=== PATIENT | male | born 1970 | race Caucasian/White ===

== ENCOUNTER 2018-01-23 19:26 | Inpatient (IN) | payer OTHER, SELFPAY ==
--- NOTE | 2018-01-23 20:15 | NURSING ---
Pt arrived by w/c from [facility]. Family at bedside.
[2018-01-23 20:24] VITALS: BMI 27.8
[2018-01-23 20:28] VITALS: BP 150/79; PULSE 100; RESP 17; TEMP 37.2; O2SAT 98
--- NOTE | 2018-01-23 20:30 | NURSING ---
Hospital back digger operator put a call to Neurologist, Dr Voss for orders.
--- NOTE | 2018-01-23 20:44 | NURSING ---
Answering service paged for Dr Voss a second time.
[2018-01-23] MEDS: oxyCODONE 5 MG Tablet 10 MG PO (21:59)
[2018-01-23 22:00] VITALS: BP 142/78; PULSE 97; RESP 17; TEMP 37; O2SAT 96
[2018-01-23 22:03] VITALS: BMI 27.9
[2018-01-23] MEDS: Senna/Docusate Sodium 1 Tablet 2 TABLET PO (22:23)
[2018-01-23] MEDS: traMADol 50 MG Tablet PO (23:32)
[2018-01-24] MEDS: oxyCODONE 5 MG Tablet 10 MG PO ×6 (02:02→23:04)
[2018-01-24 05:48] LABS: Hematocrit 40.3 % (40-54); Hemoglobin 13.4 g/dl (13.0-16.5); Mean Corp Hgb Conc 33.3 g/gl (32-36); Mean Corpuscular Volume 87.2 fL (80-94); Mean Platelet Vol. 10.5 fl (6.2-12.0); Platelet Count 221 K/mm3 (150-450); RBC Distribution Width CV 12.5 % (11.6-14.6); RBC Distribution Width SD 39.8 fl (35.1-43.9); Red Blood Count 4.62 M/mm3 (4.6-6.2); White Blood Count 8.3 K/mm3 (4.4-11.0)
[2018-01-24 05:55] LABS: Scan Indicated on CBC? Y/N NO
[2018-01-24 06:09] LABS: Anion Gap 8 (5-15); BUN 11 mg/dL (7-18); BUN/Creat Ratio 13.9 RATIO (10-20); Calcium,Total 9.2 mg/dL (8.5-10.1); Chloride 101 mmol/L (98-107); Creatinine, Serum 0.79 mg/dL (0.70-1.30); EST Glomerular Filtration Rate 112 mL/min (>60); Est Glom Filt Rate - Afr Amer 136 mL/min (>60); Estimated Creatinine Clearance 118.08 ml/min; Glucose 110 mg/dL (74-106); Potassium 4.3 mmol/L (3.5-5.1); Sodium Level 139 mmol/L (136-145)
[2018-01-24 06:53] VITALS: BP 146/78; PULSE 90; RESP 18; TEMP 36.4; O2SAT 98
[2018-01-24 07:00] VITALS: BP 146/78; PULSE 90; RESP 18; TEMP 36.4; O2SAT 98
[2018-01-24] MEDS: Enoxaparin 40 MG/0.4 ML Syringe SC (09:56)
[2018-01-24] MEDS: Multivitamins,Therapeutic Tablet 1 TABLET PO (09:57)
[2018-01-24] MEDS: fentaNYL 25 MCG Patch TRANSDERM. (09:57)
[2018-01-24] MEDS: Senna/Docusate Sodium 1 Tablet 2 TABLET PO ×2 (09:59→21:39)
[2018-01-24] MEDS: Pantoprazole Sodium 40 MG Tablet PO (09:59)
[2018-01-24] MEDS: Acetaminophen 325 MG Tablet 650 MG PO (10:02)
--- NOTE | 2018-01-24 12:07 | PCM.PROGNOTE ---
Patient Problems: Active and Suspected Problems Bilateral ankle fractures (Acute) Fall from ladder (Acute) Subjective: Chief complaint: Consultation for medical management after admission to inpatient rehab unit. Patient admitted to inpatient rehab unit after he suffered bilateral ankle fractures due to fall from a ladder, underwent operative repair with operative reduction and internal fixation. At this time, he states that his bilateral ankle pains are well managed. He has no specific complaints. His vital signs are stable. His routine blood work from today including CBC and BMP was unremarkable. - Physical Exam General: Alert, Oriented x3, Cooperative, No apparent distress HEENT: Atraumatic, PERRLA, EOMI, Normocephalic Oral: Moist Mucosa, No Gingival or Mucosal Lesions/ Ulcerations Neck: Supple, No JVD, Negative Carotid Bruits, Trachea Midline, Thyroid Normal Size and Texture Lungs: Clear to auscultation, Normal air movement, No rhonchi, No wheeze, No rales Cardiovascular: Regular rate, Regular Rhythm, Normal S1, Normal S2, No murmurs, PMI Normal Abdomen: Bowel Sounds Present, Soft, Non Tender, Non-Distended, No Hepato-splenomegaly Extremities: No clubbing, No cyanosis, - - Both legs and feet are in cast from just below knee down to the toes. Skin: No rashes, No breakdown Lymphatic: No Cervical, Supraclavicular, or Inguinal Adenopathy Neurological: Cranial nerves II-XII grossly intact, Motor Exam 5/5 strength throughout Psych/Mental Status: Normal Affect, Appropriate, Alert and oriented to time, place, person, mood and affect Vital Signs Temp Pulse Resp BP Pulse Ox 97.6 F L 90 18 146/78 H 98 01/24/18 07:00 01/24/18 07:00 01/24/18 07:00 01/24/18 07:00 01/24/18 07:00 Oxygen Delivery Method Room Air Weight: 189 lb Body Mass Index (BMI) 27.8 Intake and Output for Last 24 Hours 01/22/18 01/23/18 01/24/18 23:59 23:59 23:59 Intake Total 240 / 240 360 / 360 Output Total 300 / 300 950 / 950 Balance -60 / -60 -590 / -590 Laboratory Tests Past 24 Hrs 01/24/18 01/24/18 05:20 05:20 WBC 8.3 RBC 4.62 Hgb 13.4 Hct 40.3 MCV 87.2 MCH 29.0 MCHC 33.3 RDW 12.5 RDW Differential 39.8 Plt Count 221 MPV 10.5 Sodium 139 Potassium 4.3 Chloride 101 Carbon Dioxide 30.0 Anion Gap 8 BUN 11 Creatinine 0.79 Estim Creat Clear Calc 118.08 Est GFR (MDRD) Af Amer 136 Est GFR (MDRD) Non-Af 112 BUN/Creatinine Ratio 13.9 Glucose 110 H Calcium 9.2 Medical Necessity - Tobacco Use Smoking Status: Never smoker Assessment/Plan All Active Problems Bilateral ankle fractures (Acute) Fall from ladder (Acute) This is a 47 years old male patient admitted to inpatient rehab unit after he suffered bilateral ankle fractures due to fall from a ladder, underwent open reduction and internal fixation of the ankle fractures and I am seeing this patient in consultation for medical management. #1 acute traumatic bilateral ankle fracture due to fall from a ladder: Status post open reduction and internal fixation. He is on Duragesic patch and OxyIR as needed for pain as well as tramadol. His vital signs are stable. Routine blood work was unremarkable. He is doing well with physical therapy. Plan to continue PT OT according to rehab team. #2 GERD: Continue Protonix. #3 DVT prophylaxis: Subcu Lovenox. This note was generated with [employer] dictation software. It may contain incorrect words, spelling, and punctuation that were not noted in checking the note before signing. Code Visit Inpatient E&M: 00796 Subs Hosp L2
--- NOTE | 2018-01-24 12:11 | PN_ITS ---
Patient Problems: Active and Suspected Problems Bilateral ankle fractures (Acute) Fall from ladder (Acute) Subjective: Chief complaint: Consultation for medical management after admission to inpatient rehab unit. Patient admitted to inpatient rehab unit after he suffered bilateral ankle fractures due to fall from a ladder, underwent operative repair with operative reduction and internal fixation. At this time, he states that his bilateral ankle pains are well managed. He has no specific complaints. His vital signs are stable. His routine blood work from today including CBC and BMP was unremarkable. - Physical Exam General: Alert, Oriented x3, Cooperative, No apparent distress HEENT: Atraumatic, PERRLA, EOMI, Normocephalic Oral: Moist Mucosa, No Gingival or Mucosal Lesions/ Ulcerations Neck: Supple, No JVD, Negative Carotid Bruits, Trachea Midline, Thyroid Normal Size and Texture Lungs: Clear to auscultation, Normal air movement, No rhonchi, No wheeze, No rales Cardiovascular: Regular rate, Regular Rhythm, Normal S1, Normal S2, No murmurs, PMI Normal Abdomen: Bowel Sounds Present, Soft, Non Tender, Non-Distended, No Hepato- splenomegaly Extremities: No clubbing, No cyanosis, - - Both legs and feet are in cast from just below knee down to the toes. Skin: No rashes, No breakdown Lymphatic: No Cervical, Supraclavicular, or Inguinal Adenopathy Neurological: Cranial nerves II-XII grossly intact, Motor Exam 5/5 strength t hroughout Psych/Mental Status: Normal Affect, Appropriate, Alert and oriented to time, place, person, mood and affect Vital Signs Temp Pulse Resp BP Pulse Ox 97.6 F L 90 18 146/78 H 98 01/24/18 07:00 01/24/18 07:00 01/24/18 07:00 01/24/18 07:00 01/24/18 07:00 Oxygen Delivery Method Room Air Weight: 189 lb Body Mass Index (BMI) 27.8 Intake and Output for Last 24 Hours 01/22/18 01/23/18 01/24/18 23:59 23:59 23:59 Intake Total 240 / 240 360 / 360 Output Total 300 / 300 950 / 950 Balance -60 / -60 -590 / -590 Laboratory Tests Past 24 Hrs 01/24/18 01/24/18 05:20 05:20 WBC 8.3 RBC 4.62 Hgb 13.4 Hct 40.3 MCV 87.2 MCH 29.0 MCHC 33.3 RDW 12.5 RDW Differential 39.8 Plt Count 221 MPV 10.5 Sodium 139 Potassium 4.3 Chloride 101 Carbon Dioxide 30.0 Anion Gap 8 BUN 11 Creatinine 0.79 Estim Creat Clear Calc 118.08 Est GFR (MDRD) Af Amer 136 Est GFR (MDRD) Non-Af 112 BUN/Creatinine Ratio 13.9 Glucose 110 H Calcium 9.2 Medical Necessity - Tobacco Use Smoking Status: Never smoker Assessment/Plan All Active Problems Bilateral ankle fractures (Acute) Fall from ladder (Acute) This is a 47 years old male patient admitted to inpatient rehab unit after he suffered bilateral ankle fractures due to fall from a ladder, underwent open reduction and internal fixation of the ankle fractures and I am seeing this patient in consultation for medical management. #1 acute traumatic bilateral ankle fracture due to fall from a ladder: Status post open reduction and internal fixation. He is on Duragesic patch and OxyIR as needed for pain as well as tramadol. His vital signs are stable. Routine blood work was unremarkable. He is doing well with physical therapy. Plan to continue PT OT according to rehab team. #2 GERD: Continue Protonix. #3 DVT prophylaxis: Subcu Lovenox. This note was generated with [employer] dictation software. It may contain incorrect words, spelling, and punctuation that were not noted in checking the note before signing. Code Visit Inpatient E&M: 86362 Subs Hosp L2
--- NOTE | 2018-01-24 12:58 | PCM.HP.STD ---
History of Present Illness Date of Admission: 01/23/18 Chief Complaint: Bilateral lower extremity pain and debility Mr. Hansen is a 47-year-old white male who was previously healthy, who is admitted to the rehab unit for debility after bilateral ankle fractures status post open reduction and internal fixation performed by Dr. Sharpe daily on 09/18/17. He apparently was elevated approximately 12 feet and fell off of a ladder landing on his feet. He suffered bilateral ankle fractures and required surgery as above. He normally weight works at [employer] and is completely healthy. He lives at home with his and several children 3 of whom are adults. He also has family members that live next door. He lives in a single level house and already has a ramp installed. He denies any other complaints other than pain he has experienced however some pain when he gets behind on his analgesics. Bowels and bladder are unaffected and he has no other complaints. Past Medical History Allergies No Known Allergies Allergy (Verified 01/23/18 21:08) Surgical History: no surgical history Psychiatric History: No pertinent psych hx Lives: With Family Smoking Status: Never smoker Alcohol: None Drugs: None Review of Systems Constitutional: Denies: Chills, Fever, Weight Change HEENT: Denies: Head Aches, Sinus Congestion, Sinus Drainage Cardiovascular: Denies: Chest Pain, Palpitations Respiratory: Denies: Cough, Shortness of breath at rest, Sputum production Gastrointestinal: Denies: Abdominal Pain, Nausea, Vomiting Genitourinary: Denies: Dysuria Musculoskeletal: Reports: Joint Pain. Denies: Joint Tenderness Skin: Denies: Rash, Wounds Neurological: Denies: Numbness, Tingling, Focal weakness Psychiatric: Denies: Anxiety, Depression, Homicidal Ideations, Suicidal Ideations Hematologic/ Lymphatic: Denies: Easy Bruising, Easy Bleeding VTE Information - Inpt Only VTE Present on Admission: Yes VTE Pharm Prophylaxis ordered?: Yes Patient Problems: Active and Suspected Problems Bilateral ankle fractures (Acute) Fall from ladder (Acute) - Physical Exam General: Alert, Oriented x3, Cooperative, No apparent distress Neurological: Cranial nerves II-XII grossly intact Psych/Mental Status: Normal Affect Vital Signs Temp Pulse Resp BP Pulse Ox 36.4 C L 90 18 146/78 H 98 01/24/18 07:00 01/24/18 07:00 01/24/18 07:00 01/24/18 07:00 01/24/18 07:00 Oxygen Delivery Method Room Air Weight: 85.729 kg Body Mass Index (BMI) 27.8 Intake and Output for Last 24 Hours 01/22/18 01/23/18 01/24/18 23:59 23:59 23:59 Intake Total 240 / 240 360 / 360 Output Total 300 / 300 950 / 950 Balance -60 / -60 -590 / -590 Laboratory Tests Past 24 Hrs 01/24/18 01/24/18 05:20 05:20 WBC 8.3 RBC 4.62 Hgb 13.4 Hct 40.3 MCV 87.2 MCH 29.0 MCHC 33.3 RDW 12.5 RDW Differential 39.8 Plt Count 221 MPV 10.5 Sodium 139 Potassium 4.3 Chloride 101 Carbon Dioxide 30.0 Anion Gap 8 BUN 11 Creatinine 0.79 Estim Creat Clear Calc 118.08 Est GFR (MDRD) Af Amer 136 Est GFR (MDRD) Non-Af 112 BUN/Creatinine Ratio 13.9 Glucose 110 H Calcium 9.2 Current Medications Generic Name Dose Route Start Last Admin Trade Name Freq PRN Reason Stop Dose Admin Acetaminophen 650 mg 01/23/18 21:09 01/24/18 10:02 Tylenol PO 650 mg Q6H PRN PRN Administration Mild Pain (0-3/10)/Headache Bisacodyl 10 mg 01/23/18 21:09 Dulcolax RECTAL .PRN X 1 PRN Constipation Enoxaparin Sodium 40 mg 01/24/18 10:00 01/24/18 09:56 Lovenox SC 40 mg DAILY OK Administration Fentanyl 25 mcg 01/24/18 10:00 01/24/18 09:57 Duragesic Patch TRANSDERM. 01/30/18 10:00 25 mcg Q3D OK Administration Magnesium Hydroxide 30 ml 01/23/18 21:09 Milk Of Magnesia PO .PRN X 1 PRN Constipation Multivitamins 1 tablet 01/24/18 08:00 01/24/18 09:57 Multivitamin PO 1 tablet DAILYCM OK Administration Ondansetron HCl 8 mg 01/23/18 21:45 Zofran PO Q8H PRN PRN NAUSEA Oxycodone HCl 10 mg 01/23/18 21:39 01/24/18 10:40 Oxyir PO 10 mg Q4H PRN PRN Administration SEVERE PAIN (6-10/10) Pantoprazole Sodium 40 mg 01/24/18 10:00 01/24/18 09:59 Protonix PO 40 mg DAILY OK Administration Senna/Docusate Sodium 2 tablet 01/23/18 22:00 01/24/18 09:59 Senokot-S, Autumn-Colace PO 2 tablet BID OK Administration Tizanidine HCl 4 mg 01/23/18 21:32 Zanaflex PO Q8H PRN PRN MUSCLE SPASM Tramadol HCl 50 mg 01/23/18 21:41 01/23/18 23:32 Ultram PO 01/30/18 10:00 50 mg TID PRN PRN Administration MODERATE PAIN (4-5/10) Assessment/Plan All Active Problems Bilateral ankle fractures (Acute) Fall from ladder (Acute) Debility status post open reduction and internal fixation of bilateral ankle fractures on 01/19/[address] Sharpe daily at [facility] with whom he is scheduled to follow-up on 02/04/18. The patient is here for essentially wheelchair transfers and would like to consider discharge 5 days from now however he understands that he may need more time in the rehab unit and is keeping an open mind about this. Goal of rehab is roman catholic of his prior level of functional independence. Plan: DVT prophylaxis: Lovenox PRN analgesics Physical therapy and occupational therapy for transfers Bowel protocol PRN sleep aid
--- NOTE | 2018-01-24 13:03 | PCM.RU.PYE ---
Admission Information Status Changes from Prescreening?: No changes Identified Actual Problem List:: Skin Intergrity, Pain, ALteration in Cmfrt, Mobility Impaired, Self Care Deficit, Ineffect.D/C Plan r/t Psy Potential Problem List:: DVT, Bleeding, Infection, UTI, Aspiration, Falls, Skin Integrity, Depression Risk of Complications DVT: LMWH, LIBERTAD Hose, Sequential Compression Device Bleeding: Monitor Lab Values, Nursing to Teach Precautions for anti-coagulation therapy., Wound, if applicable, to be assessed every shift., Stroke patients assessed for lethargy or change in status. Infection: Clinical Staff to Monitor for S/S of infection:, S/S of infection include fever, redness, warmth, etc. Urinary Tract Infection: Monitor for frequency, burning, discomfort, or incontinence., Nursing will obtain urine sample for urinalysis and C&S when ordered. Aspiration: Clinical staff will monitor for coughing, drooling, congestion., Speech will evaluate swallowing and dsyphasia., Nursing will monitor patient swallowing during meals. Falls: Patient will be evaluated for Fall Precautions, Patient will be placed on Fall Precautions as indicated per protocol. Skin Breakdown: Nursing will assess skin daily using assessment tool., Nursing will place on Skin Breakdown Precautions as indicated. Pain: Clinical staff will assess patient's pain level per protocol., Medications will be given, if needed, and the pain level reassessed., Other methods: Massage, distraction, decrease stimulus, etc. used PRN. Plan of Care Patient requires physician specializing in physical medicine and rehab oversight to provide close medical supervision of rehab issues including: Pain Management, Sleep Problems, Bowel and Bladder, Medical and co-morbidity Management, DVT prophylaxis, Rehabilitation Leadership, Coordination of treatment team Patient needs Physical Therapy: For a minimum of 1 hour, At least 5 out of 7 days Patient needs Physical Therapy to improve:: Mobility, Mobility, Mobility, Strengthening, Transfers, Stretching, ROM, Endurance, Stairs, Gait, Balance Patient needs Occupational Therapy: For a minimum of 1 hour, At least 5 out of 7 days Patient needs Occupational Therapy to improve ADL's incl.: Eating, Grooming, Bathing, Dressing, Toileting, Toilet transfers, Community Reintegration, Higher functioning activities, Household tasks, Adaptive Equipment, Splinting, Other activities as determined Patient requires 24/ Rehabilitation Nursing for: Pain Issues, Identifying and preventing risk factors, Monitoring and reporting current medical conditions, Assisting with ambulation, transfer, and all ADL's, Teaching patients about disease process and medications, Family teaching, Providing safe environment, Bowel and Bladder Issues, Skin integrity, Medication Management Patient needs Business Segment Manager/ Case Management for: Discharge Planning, Arranging Home Equipment or Services, Family Interventions Patient needs Dietary and Nutrition Services for: Adequate Nutrition, Nutritional Supplements, Nutritional Education Goals Patient will remain: free from falls, or injury at time of discharge. Patient will perform bed mobility at: MOD I level of assist. Patient will complete transfers from bed to chair at: MOD I level of assist. Patient will ambulate: 100 feet, with MOD I assist, with LRD Patient will complete upper body dressing at: MOD I level of assist. Patient will complete lower body dressing at: MOD I level of assist. Patient will complete toileting at: MOD I level of assist. Patient will perform bathing at: MOD I level of assist. Patient will complete grooming at: MOD I level of assist. Patient will complete home management skills at: MOD I level of assist. Patient will achieve: 12 stairs, at MOD I assist Patient will have pain level of: of 3 or less Patient's skin will: remain intact, free from infection. Patient will receive: adequate nutrition. Discharge Planning Pt Prognosis for Sig. Practical Improv. w/in Reasonable Time: Good Anticipated D/C Destination: Home with Outpt Therapy Was Preadmission Assessment Accurate?: Yes
--- NOTE | 2018-01-24 14:01 | CASEMGMT ---
Social Work See attached assessment for complete details. Patient reporting to need a wheelchair with elevated leg rest, removable arm rest, and a gel manuel along with a hospital bed, bedside commode with drop arms, and sliding board. Therapy confirming above mentioned equipment. Patient reporting to have no preference of [employer], [employer] to be utilized. Patient agreeable to this sr. social media & mobile manager beginning the process of setting up the equipment as it can take sometime for things to get ordered in, if needed to be ordered. Support given. Telephone call to Dayanna Lloyd. This sr. social media & mobile manager making referral for above mentioned equipment. Orders faxed. Dayanna reporting to have all needed equipment in stock at this time and to be able to hold equipment for patient until time of discharge. Will continue to follow as needed. CLARISSA IqbalW, AIRLINE MECHANIC
[2018-01-24] MEDS: tiZANidine HCl 2 MG Tablet 4 MG PO ×2 (15:00→23:04)
[2018-01-24 15:55] VITALS: O2SAT 95
[2018-01-24 21:16] VITALS: BP 146/69; PULSE 94; RESP 18; TEMP 36.9; O2SAT 93
[2018-01-24] MEDS: traMADol 50 MG Tablet PO (21:39)
[2018-01-25] MEDS: oxyCODONE 5 MG Tablet 10 MG PO ×4 (03:45→21:15)
[2018-01-25 06:42] VITALS: O2SAT 98
[2018-01-25 08:00] VITALS: BP 140/99; PULSE 103; RESP 20; TEMP 36.7; O2SAT 95
[2018-01-25] MEDS: Pantoprazole Sodium 40 MG Tablet PO (08:11)
[2018-01-25] MEDS: Multivitamins,Therapeutic Tablet 1 TABLET PO (08:11)
[2018-01-25] MEDS: Senna/Docusate Sodium 1 Tablet 2 TABLET PO (08:11)
[2018-01-25] MEDS: Enoxaparin 40 MG/0.4 ML Syringe SC (08:16)
[2018-01-25] MEDS: traMADol 50 MG Tablet PO (17:11)
[2018-01-25] MEDS: tiZANidine HCl 2 MG Tablet 4 MG PO (17:12)
[2018-01-25 20:53] VITALS: BP 132/75; PULSE 96; RESP 20; TEMP 37.1; O2SAT 95
[2018-01-26] MEDS: oxyCODONE 5 MG Tablet 10 MG PO ×5 (02:37→21:24)
[2018-01-26 06:44] VITALS: O2SAT 97
--- NOTE | 2018-01-26 06:47 | NURSING ---
Pt found in bathroom at [facility]. in room. states that she assisted per pt request. Pt reminded to call staff for assist for any transfers and that family should not be assisting unless cleared by therapy. Pt acknowledges
[2018-01-26 08:01] VITALS: BP 113/63; PULSE 82; RESP 16; TEMP 36.8; O2SAT 98
[2018-01-26] MEDS: Pantoprazole Sodium 40 MG Tablet PO (08:01)
[2018-01-26] MEDS: Enoxaparin 40 MG/0.4 ML Syringe SC (08:02)
[2018-01-26] MEDS: Multivitamins,Therapeutic Tablet 1 TABLET PO (08:02)
[2018-01-26] MEDS: tiZANidine HCl 2 MG Tablet 4 MG PO ×2 (14:44→23:08)
[2018-01-26 20:57] VITALS: BP 143/85; PULSE 86; RESP 16; TEMP 36.9; O2SAT 96
[2018-01-26] MEDS: Senna/Docusate Sodium 1 Tablet 2 TABLET PO (21:00)
--- NOTE | 2018-01-26 23:15 | NURSING ---
c/o burning heels. Pillows repositioned so heels hang freely
[2018-01-27] MEDS: oxyCODONE 5 MG Tablet 10 MG PO ×5 (03:04→23:02)
--- NOTE | 2018-01-27 03:17 | NURSING ---
Pt calls staff due to wet sheets and shirt from night sweats. Assisted with bath, linen and clothing change done; medicated for pain per request
[2018-01-27] MEDS: Acetaminophen 325 MG Tablet 650 MG PO (06:41)
[2018-01-27] MEDS: tiZANidine HCl 2 MG Tablet 4 MG PO ×2 (06:41→23:04)
[2018-01-27 06:51] VITALS: O2SAT 95
[2018-01-27 07:00] VITALS: BP 134/79; PULSE 74; RESP 14; TEMP 36.7; O2SAT 95
[2018-01-27] MEDS: Enoxaparin 40 MG/0.4 ML Syringe SC (08:06)
[2018-01-27] MEDS: Multivitamins,Therapeutic Tablet 1 TABLET PO (08:06)
[2018-01-27] MEDS: Pantoprazole Sodium 40 MG Tablet PO (08:06)
--- NOTE | 2018-01-27 10:49 | PCM.PN.NEU ---
Patient Problems: Active and Suspected Problems Bilateral ankle fractures (Acute) Fall from ladder (Acute) Subjective: Staffed in team meeting. Family was not at bedside, questions were answered. With Physical therapy, He is doing very well. He is able to do all his own transfers in and out of bed at stand by assist. He is able to position the wheel chair, place the sliding board, remove his arm rest, and leg rest, and transfer himself all at stand by assist. He has gone 325 feet in the wheel chair, up ramps, across carpeting and out side in the environment all at stand by assist. With Occupational therapy, He is able to do all his own personal care at supervision level assist. With Nursing he is still having some acute surgical pain, will increase his Fentanyl patch to 50mcq, schedule Tylenol 1,000 mg TID. Insurance update is 01/29, patient would like stay longer if allowed, he would benefit from additional upper body strengthening. - Physical Exam General: Alert, Oriented x3, Cooperative HEENT: Atraumatic, PERRLA, EOMI, Normocephalic Neck: Supple, No JVD, Negative Carotid Bruits Lungs: Clear to auscultation, Normal air movement Cardiovascular: Regular rate, No murmurs Abdomen: Bowel Sounds Present, Soft, Non Tender Extremities: No edema, Capillary Refill Less than 3 Seconds Skin: No rashes, No breakdown Musculoskeletal: No Tenderness to Palpation of Joints or Extremities Neurological: Cranial nerves II-XII grossly intact Psych/Mental Status: Normal Affect, Appropriate, Alert and oriented to time, place, person, mood and affect Vital Signs Temp Pulse Resp BP Pulse Ox 98.1 F 74 14 134/79 H 95 01/27/18 07:00 01/27/18 07:00 01/27/18 07:00 01/27/18 07:00 01/27/18 07:00 Oxygen Delivery Method Room Air Weight: 85.729 kg Body Mass Index (BMI) 27.8 Intake and Output for Last 24 Hours 01/25/18 01/26/18 01/27/18 23:59 23:59 23:59 Intake Total 720 / 720 240 / 240 Output Total 450 / 450 400 / 400 Balance 270 / 270 -400 / -400 240 / 240 Active Medications Acetaminophen (Tylenol) 1,000 mg PO TID OK Bisacodyl (Dulcolax) 10 mg RECTAL .PRN X 1 PRN PRN Reason: Constipation Enoxaparin Sodium (Lovenox) 40 mg SC DAILY [facility] Last Admin: 01/27/18 08:06 Dose: 40 mg Fentanyl (Duragesic Patch) 50 mcg TRANSDERM. Q72H [facility] Last Admin: 01/27/18 10:17 Dose: 50 mcg Magnesium Hydroxide (Milk Of Magnesia) 30 ml PO .PRN X 1 PRN PRN Reason: Constipation [facility]it[facility] ([facility]) [facility] Last Admin: 01/27/18 08:06 Dose: 1 tablet Ondansetron HCl (Zofran) 8 mg PO Q8H PRN PRN PRN Reason: NAUSEA Oxycodone HCl (Oxyir) 10 mg PO Q4H PRN PRN PRN Reason: SEVERE PAIN (6-10/10) Last Admin: 01/27/18 08:06 Dose: 10 mg Pantoprazole Sodium (Protonix) 40 mg PO DAILY [facility] Last Admin: 01/27/18 08:06 Dose: 40 mg Senna/Docusate Sodium (Senokot-S, Autumn-Colace) 2 tablet PO BID [facility] Last Admin: 01/27/18 08:08 Dose: Not Given Tizanidine HCl (Zanaflex) 4 mg PO Q8H PRN PRN PRN Reason: MUSCLE SPASM Last Admin: 01/27/18 06:41 Dose: 4 mg Tramadol HCl (Ultram) 50 mg PO TID PRN PRN PRN Reason: MODERATE PAIN (4-5/10) Stop: 01/30/18 10:00 Last Admin: 01/25/18 17:11 Dose: 50 mg Medical Necessity - Tobacco Use Smoking Status: Never smoker Assessment/Plan All Active Problems Bilateral ankle fractures (Acute) Fall from ladder (Acute) Debility status post open reduction and internal fixation of bilateral ankle fractures on 01/19/[address] Sharpe daily at [facility] with whom he is scheduled to follow-up on 02/04/18. The patient is here for essentially wheelchair transfers and would like to consider discharge 5 days from now however he understands that he may need more time in the rehab unit and is keeping an open mind about this. Goal of rehab is congregational of his prior level of functional independence. Plan: - DVT prophylaxis: Lovenox - PRN analgesics -> started on Fentnayl patch at 25mcq will increase to 50 mcq 2/2 increased acute pain - Physical therapy and occupational therapy for transfers - Bowel protocol - PRN sleep aid - plan is discharge home when appropriate - B/L lower extremity cast, dressings are dry, clean, and intact
--- NOTE | 2018-01-27 11:51 | CASEMGMT ---
Team meeting held today with pt present. Pt is progressing well with therapy. Pt plans to continue with treatment plan at this time with no d/c date set. Insurance update due 01/29/18 and pt expressing desire to remain in rehab unit and continue with therapy beyond 01/29 if insurance approves continued stay. Pt is aware that if insurance denies continued stay d/c will be set for day after last covered day. [place] [facility] [place] ready for [place] in the home upon d/c date being set. Will continue with treatment plan at this time. ESTEVAN Martinez
[2018-01-27] MEDS: Acetaminophen 500 MG Tablet 1000 MG PO ×2 (14:39→23:04)
[2018-01-27 19:21] VITALS: BP 144/84; PULSE 87; RESP 16; TEMP 36.9; O2SAT 97
[2018-01-27 22:00] VITALS: RESP 16
[2018-01-27] MEDS: Senna/Docusate Sodium 1 Tablet 2 TABLET PO (23:06)
[2018-01-28] MEDS: Acetaminophen 500 MG Tablet 1000 MG PO ×3 (05:42→22:06)
[2018-01-28] MEDS: traMADol 50 MG Tablet PO (05:47)
[2018-01-28] MEDS: Pantoprazole Sodium 40 MG Tablet PO ×2 (08:45)
[2018-01-28] MEDS: Multivitamins,Therapeutic Tablet 1 TABLET PO (08:46)
[2018-01-28] MEDS: Enoxaparin 40 MG/0.4 ML Syringe SC (08:46)
[2018-01-28 10:00] VITALS: BP 138/74; PULSE 77; RESP 16; TEMP 36.8; O2SAT 99
[2018-01-28] MEDS: tiZANidine HCl 2 MG Tablet 4 MG PO ×2 (10:52→22:07)
--- NOTE | 2018-01-28 16:42 | PN.NEURO_ITS ---
Patient Problems: Active and Suspected Problems Bilateral ankle fractures (Acute) Fall from ladder (Acute) Subjective: Patient seen and examined. No new complaints, tolerating therapy. Pain is well controlled on current pain medications. No issues with GI/. - Physical Exam General: Alert, Oriented x3, Cooperative HEENT: Atraumatic, PERRLA, EOMI, Normocephalic Neck: Supple, No JVD, Negative Carotid Bruits Lungs: Clear to auscultation, Normal air movement Cardiovascular: Regular rate, No murmurs Abdomen: Bowel Sounds Present, Soft, Non Tender Extremities: No edema, Capillary Refill Less than 3 Seconds Skin: No rashes, No breakdown Musculoskeletal: No Tenderness to Palpation of Joints or Extremities Neurological: Cranial nerves II-XII grossly intact Psych/Mental Status: Normal Affect, Appropriate, Alert and oriented to time, place, person, mood and affect Vital Signs Temp Pulse Resp BP Pulse Ox 98.2 F 77 16 138/74 H 99 01/28/18 10:00 01/28/18 10:00 01/28/18 10:00 01/28/18 10:00 01/28/18 10:00 Oxygen Delivery Method Room Air Weight: 85.729 kg Body Mass Index (BMI) 27.8 Intake and Output for Last 24 Hours 01/26/18 01/27/18 01/28/18 23:59 23:59 23:59 Intake Total 480 / 480 Output Total 400 / 400 Balance -400 / -400 480 / 480 Active Medications Acetaminophen (Tylenol) 1,000 mg PO TID [facility] Last Admin: 01/28/18 14:34 Dose: 1,000 mg Bisacodyl (Dulcolax) 10 mg RECTAL .PRN X 1 PRN PRN Reason: Constipation Enoxaparin Sodium (Lovenox) 40 mg SC DAILY [facility] Last Admin: 01/28/18 08:46 Dose: 40 mg Fentanyl (Duragesic Patch) 50 mcg TRANSDERM. Q72H [facility] Last Admin: 01/27/18 10:17 Dose: 50 mcg Magnesium Hydroxide (Milk Of Magnesia) 30 ml PO .PRN X 1 PRN PRN Reason: Constipation [facility] Last Admin: 01/28/18 08:46 Dose: 1 tablet Ondansetron HCl (Zofran) 8 mg PO Q8H PRN PRN PRN Reason: NAUSEA Oxycodone HCl (Oxyir) 10 mg PO Q4H PRN PRN PRN Reason: SEVERE PAIN (6-10/10) Last Admin: 01/27/18 23:02 Dose: 10 mg Pantoprazole Sodium (Protonix) 40 mg PO DAILY [facility] Last Admin: 01/28/18 08:45 Dose: 40 mg Senna/Docusate Sodium (Senokot-S, Autumn-Colace) 2 tablet PO BID [facility] Last Admin: 01/28/18 08:46 Dose: Not Given Tizanidine HCl (Zanaflex) 4 mg PO Q8H PRN PRN PRN Reason: MUSCLE SPASM Last Admin: 01/28/18 10:52 Dose: 4 mg Tramadol HCl (Ultram) 50 mg PO TID PRN PRN PRN Reason: MODERATE PAIN (4-5/10) Stop: 01/30/18 10:00 Last Admin: 01/28/18 05:47 Dose: 50 mg Medical Necessity - Tobacco Use Smoking Status: Never smoker Assessment/Plan All Active Problems Bilateral ankle fractures (Acute) Fall from ladder (Acute) Debility status post open reduction and internal fixation of bilateral ankle fractures on 01/19/[address] Sharpe daily at [facility] with whom he is scheduled to follow-up on 02/04/18. The patient is here for essentially wheelchair transfers and would like to consider discharge 5 days from now however he understands that he may need more time in the rehab unit and is keeping an open mind about this. Goal of rehab is amish of his prior level of functional independence. Plan: - DVT prophylaxis: Lovenox - PRN analgesics -> started on Fentanyl patch at 25mcq will increase to 50 mcq 2/2 increased acute pain => pain well controlled on current medications - Physical therapy and occupational therapy for transfers - Bowel protocol - PRN sleep aid - plan is discharge home when appropriate - B/L lower extremity cast, dressings are dry, clean, and intact
[2018-01-28 19:10] VITALS: BP 142/87; PULSE 85; RESP 18; TEMP 37; O2SAT 96
[2018-01-29] MEDS: Acetaminophen 500 MG Tablet 1000 MG PO ×3 (06:39→21:55)
[2018-01-29] MEDS: Senna/Docusate Sodium 1 Tablet 2 TABLET PO (06:40)
[2018-01-29 08:33] VITALS: BP 160/76; PULSE 89; RESP 16; TEMP 36.8; O2SAT 95
[2018-01-29] MEDS: Multivitamins,Therapeutic Tablet 1 TABLET PO (09:08)
[2018-01-29] MEDS: Enoxaparin 40 MG/0.4 ML Syringe SC (09:08)
--- NOTE | 2018-01-29 09:35 | PCM.PN.NEU ---
Patient Problems: Active and Suspected Problems Bilateral ankle fractures (Acute) Fall from ladder (Acute) Subjective: Patient seen and examined. No new complaints. Tolerating therapy, pain is well controlled. No issues with GI/. He's doing very well with sliding board transfers, and using the wheel chair to move around the unit. - Physical Exam General: Alert, Oriented x3, Cooperative HEENT: Atraumatic, PERRLA, EOMI, Normocephalic Neck: Supple, No JVD, Negative Carotid Bruits Lungs: Clear to auscultation, Normal air movement Cardiovascular: Regular rate, No murmurs Abdomen: Bowel Sounds Present, Soft, Non Tender Extremities: No edema, Capillary Refill Less than 3 Seconds Skin: No rashes, No breakdown Musculoskeletal: No Tenderness to Palpation of Joints or Extremities Neurological: Cranial nerves II-XII grossly intact Psych/Mental Status: Normal Affect, Appropriate, Alert and oriented to time, place, person, mood and affect Vital Signs Temp Pulse Resp BP Pulse Ox 98.2 F 89 16 160/76 H 95 01/29/18 08:33 01/29/18 08:33 01/29/18 08:33 01/29/18 08:33 01/29/18 08:33 Oxygen Delivery Method Room Air Weight: 85.729 kg Body Mass Index (BMI) 27.8 Intake and Output for Last 24 Hours 01/27/18 01/28/18 01/29/18 23:59 23:59 23:59 Intake Total 480 / 480 Balance 480 / 480 Active Medications Acetaminophen (Tylenol) 1,000 mg PO TID [facility] Last Admin: 01/29/18 06:39 Dose: 1,000 mg Bisacodyl (Dulcolax) 10 mg RECTAL .PRN X 1 PRN PRN Reason: Constipation Enoxaparin Sodium (Lovenox) 40 mg SC DAILY [facility] Last Admin: 01/29/18 09:08 Dose: 40 mg Fentanyl (Duragesic Patch) 50 mcg TRANSDERM. Q72H [facility] Last Admin: 01/27/18 10:17 Dose: 50 mcg Magnesium Hydroxide (Milk Of Magnesia) 30 ml PO .PRN X 1 PRN PRN Reason: Constipation [facility] Last Admin: 01/29/18 09:08 Dose: 1 tablet Ondansetron HCl (Zofran) 8 mg PO Q8H PRN PRN PRN Reason: NAUSEA Oxycodone HCl (Oxyir) 10 mg PO Q4H PRN PRN PRN Reason: SEVERE PAIN (6-10/10) Last Admin: 01/27/18 23:02 Dose: 10 mg Pantoprazole Sodium (Protonix) 40 mg PO DAILY [facility] Last Admin: 01/28/18 08:45 Dose: 40 mg Senna/Docusate Sodium (Senokot-S, Autumn-Colace) 2 tablet PO BID [facility] Last Admin: 01/29/18 06:40 Dose: 1 tablet Tizanidine HCl (Zanaflex) 4 mg PO Q8H PRN PRN PRN Reason: MUSCLE SPASM Last Admin: 01/28/18 22:07 Dose: 4 mg Tramadol HCl (Ultram) 50 mg PO TID PRN PRN PRN Reason: MODERATE PAIN (4-5/10) Stop: 01/30/18 10:00 Last Admin: 01/28/18 05:47 Dose: 50 mg Medical Necessity - Tobacco Use Smoking Status: Never smoker Assessment/Plan All Active Problems Bilateral ankle fractures (Acute) Fall from ladder (Acute) Debility status post open reduction and internal fixation of bilateral ankle fractures on 01/19/[address] Sharpe daily at [facility] with whom he is scheduled to follow-up on 02/04/18. The patient is here for essentially wheelchair transfers and would like to consider discharge 5 days from now however he understands that he may need more time in the rehab unit and is keeping an open mind about this. Goal of rehab is latter-day of his prior level of functional independence. Plan: - DVT prophylaxis: Lovenox - PRN analgesics -> started on Fentanyl patch at 25mcq will increase to 50 mcq 2/2 increased acute pain => pain well controlled on current medications - Physical therapy and occupational therapy for transfers - Bowel protocol - PRN sleep aid - plan is discharge home when appropriate - B/L lower extremity cast, dressings are dry, clean, and intact
--- NOTE | 2018-01-29 09:38 | PN.NEURO_ITS ---
Patient Problems: Active and Suspected Problems Bilateral ankle fractures (Acute) Fall from ladder (Acute) Subjective: Patient seen and examined. No new complaints. Tolerating therapy, pain is well controlled. No issues with GI/. He's doing very well with sliding board transfers, and using the wheel chair to move around the unit. - Physical Exam General: Alert, Oriented x3, Cooperative HEENT: Atraumatic, PERRLA, EOMI, Normocephalic Neck: Supple, No JVD, Negative Carotid Bruits Lungs: Clear to auscultation, Normal air movement Cardiovascular: Regular rate, No murmurs Abdomen: Bowel Sounds Present, Soft, Non Tender Extremities: No edema, Capillary Refill Less than 3 Seconds Skin: No rashes, No breakdown Musculoskeletal: No Tenderness to Palpation of Joints or Extremities Neurological: Cranial nerves II-XII grossly intact Psych/Mental Status: Normal Affect, Appropriate, Alert and oriented to time, place, person, mood and affect Vital Signs Temp Pulse Resp BP Pulse Ox 98.2 F 89 16 160/76 H 95 01/29/18 08:33 01/29/18 08:33 01/29/18 08:33 01/29/18 08:33 01/29/18 08:33 Oxygen Delivery Method Room Air Weight: 85.729 kg Body Mass Index (BMI) 27.8 Intake and Output for Last 24 Hours 01/27/18 01/28/18 01/29/18 23:59 23:59 23:59 Intake Total 480 / 480 Balance 480 / 480 Active Medications Acetaminophen (Tylenol) 1,000 mg PO TID [facility] Last Admin: 01/29/18 06:39 Dose: 1,000 mg Bisacodyl (Dulcolax) 10 mg RECTAL .PRN X 1 PRN PRN Reason: Constipation Enoxaparin Sodium (Lovenox) 40 mg SC DAILY [facility] Last Admin: 01/29/18 09:08 Dose: 40 mg Fentanyl (Duragesic Patch) 50 mcg TRANSDERM. Q72H [facility] Last Admin: 01/27/18 10:17 Dose: 50 mcg Magnesium Hydroxide (Milk Of Magnesia) 30 ml PO .PRN X 1 PRN PRN Reason: Constipation [facility] Last Admin: 01/29/18 09:08 Dose: 1 tablet Ondansetron HCl (Zofran) 8 mg PO Q8H PRN PRN PRN Reason: NAUSEA Oxycodone HCl (Oxyir) 10 mg PO Q4H PRN PRN PRN Reason: SEVERE PAIN (6-10/10) Last Admin: 01/27/18 23:02 Dose: 10 mg Pantoprazole Sodium (Protonix) 40 mg PO DAILY [facility] Last Admin: 01/28/18 08:45 Dose: 40 mg Senna/Docusate Sodium (Senokot-S, Autumn-Colace) 2 tablet PO BID [facility] Last Admin: 01/29/18 06:40 Dose: 1 tablet Tizanidine HCl (Zanaflex) 4 mg PO Q8H PRN PRN PRN Reason: MUSCLE SPASM Last Admin: 01/28/18 22:07 Dose: 4 mg Tramadol HCl (Ultram) 50 mg PO TID PRN PRN PRN Reason: MODERATE PAIN (4-5/10) Stop: 01/30/18 10:00 Last Admin: 01/28/18 05:47 Dose: 50 mg Medical Necessity - Tobacco Use Smoking Status: Never smoker Assessment/Plan All Active Problems Bilateral ankle fractures (Acute) Fall from ladder (Acute) Debility status post open reduction and internal fixation of bilateral ankle fractures on 01/19/[address] Sharpe daily at [facility] with whom he is scheduled to follow-up on 02/04/18. The patient is here for essentially wheelchair transfers and would like to consider discharge 5 days from now however he understands that he may need more time in the rehab unit and is keeping an open mind about this. Goal of rehab is hinduism of his prior level of functional independence. Plan: - DVT prophylaxis: Lovenox - PRN analgesics -> started on Fentanyl patch at 25mcq will increase to 50 mcq 2/2 increased acute pain => pain well controlled on current medications - Physical therapy and occupational therapy for transfers - Bowel protocol - PRN sleep aid - plan is discharge home when appropriate - B/L lower extremity cast, dressings are dry, clean, and intact
--- NOTE | 2018-01-29 12:17 | CASEMGMT ---
Insurance Clinical updates faxed. Will await continued stay determination. Auth#[id number] ESTEVAN Martinez
[2018-01-29] MEDS: tiZANidine HCl 2 MG Tablet 4 MG PO ×2 (13:56→21:58)
[2018-01-29 22:00] VITALS: BP 158/87; PULSE 92; RESP 16; TEMP 36.9; O2SAT 94
--- NOTE | 2018-01-30 04:29 | NURSING ---
REVIEWED AND AGREE WITH CREATIVE LEAD FIM AND HANDOFF CHARTING.
[2018-01-30] MEDS: Acetaminophen 500 MG Tablet 1000 MG PO ×3 (06:46→22:20)
[2018-01-30 08:11] VITALS: BP 121/60; PULSE 77; RESP 20; TEMP 36.8; O2SAT 95
[2018-01-30] MEDS: Multivitamins,Therapeutic Tablet 1 TABLET PO (09:06)
[2018-01-30] MEDS: Senna/Docusate Sodium 1 Tablet 2 TABLET PO ×2 (09:06→22:20)
[2018-01-30] MEDS: Pantoprazole Sodium 40 MG Tablet PO (09:07)
[2018-01-30] MEDS: Enoxaparin 40 MG/0.4 ML Syringe SC (09:07)
--- NOTE | 2018-01-30 10:49 | PCM.PN.NEU ---
Patient Problems: Active and Suspected Problems Bilateral ankle fractures (Acute) Fall from ladder (Acute) Subjective: Patient seen and examined. Pain is well controlled, patient would like for the Fentanyl patch to be decreased back to 25mcq. Tolerating therapy and doing well. The plan is for discharge home tomorrow 01/31 with an extension exercise plan until cast removal by the surgeon. - Physical Exam General: Alert, Oriented x3, Cooperative HEENT: Atraumatic, PERRLA, EOMI, Normocephalic Neck: Supple, No JVD, Negative Carotid Bruits Lungs: Clear to auscultation, Normal air movement Cardiovascular: Regular rate, No murmurs Abdomen: Bowel Sounds Present, Soft, Non Tender Extremities: No edema, Capillary Refill Less than 3 Seconds Skin: No rashes, No breakdown Musculoskeletal: No Tenderness to Palpation of Joints or Extremities Neurological: Cranial nerves II-XII grossly intact Psych/Mental Status: Normal Affect, Appropriate, Alert and oriented to time, place, person, mood and affect Vital Signs Temp Pulse Resp BP Pulse Ox 98.3 F 77 20 H 121/60 H 95 01/30/18 08:11 01/30/18 08:11 01/30/18 08:11 01/30/18 08:11 01/30/18 08:11 Oxygen Delivery Method Room Air Weight: 85.729 kg Body Mass Index (BMI) 27.8 Intake and Output for Last 24 Hours 01/28/18 01/29/18 01/30/18 23:59 23:59 23:59 Intake Total 360 / 360 Balance 360 / 360 Active Medications Acetaminophen (Tylenol) 1,000 mg PO TID [facility] Last Admin: 01/30/18 06:46 Dose: 1,000 mg Bisacodyl (Dulcolax) 10 mg RECTAL .PRN X 1 PRN PRN Reason: Constipation Enoxaparin Sodium (Lovenox) 40 mg SC DAILY [facility] Last Admin: 01/30/18 09:07 Dose: 40 mg Fentanyl (Duragesic Patch) 25 mcg TRANSDERM. Q3D [facility] Magnesium Hydroxide (Milk Of Magnesia) 30 ml PO .PRN X 1 PRN PRN Reason: Constipation [facility] Last Admin: 01/30/18 09:06 Dose: 1 tablet Ondansetron HCl (Zofran) 8 mg PO Q8H PRN PRN PRN Reason: NAUSEA Oxycodone HCl (Oxyir) 10 mg PO Q4H PRN PRN PRN Reason: SEVERE PAIN (6-10/10) Last Admin: 01/27/18 23:02 Dose: 10 mg Pantoprazole Sodium (Protonix) 40 mg PO DAILY [facility] Last Admin: 01/30/18 09:07 Dose: 40 mg Senna/Docusate Sodium (Senokot-S, Autumn-Colace) 2 tablet PO BID [facility] Last Admin: 01/30/18 09:06 Dose: 1 tablet Tizanidine HCl (Zanaflex) 4 mg PO Q8H PRN PRN PRN Reason: MUSCLE SPASM Last Admin: 01/29/18 21:58 Dose: 4 mg Medical Necessity - Tobacco Use Smoking Status: Never smoker Assessment/Plan All Active Problems Bilateral ankle fractures (Acute) Fall from ladder (Acute) Debility status post open reduction and internal fixation of bilateral ankle fractures on 01/19/[address] Sharpe daily at [facility] with whom he is scheduled to follow-up on 02/04/18. The patient is here for essentially wheelchair transfers and would like to consider discharge 5 days from now however he understands that he may need more time in the rehab unit and is keeping an open mind about this. Goal of rehab is christianity of his prior level of functional independence. Plan: - DVT prophylaxis: Lovenox - PRN analgesics -> started on Fentanyl patch at 25mcq will increase to 50 mcq 2/2 increased acute pain => pain well controlled on current medications - Physical therapy and occupational therapy for transfers - Bowel protocol - PRN sleep aid - plan is discharge home when appropriate - B/L lower extremity cast, dressings are dry, clean, and intact - Plan is for discharge on Saturday home with home exercises for Physical therapy and occupational therapy, will have formal PT/OT once cast are removed.
--- NOTE | 2018-01-30 10:54 | PN.NEURO_ITS ---
Patient Problems: Active and Suspected Problems Bilateral ankle fractures (Acute) Fall from ladder (Acute) Subjective: Patient seen and examined. Pain is well controlled, patient would like for the Fentanyl patch to be decreased back to 25mcq. Tolerating therapy and doing well. The plan is for discharge home tomorrow 01/31 with an extension exercise plan until cast removal by the surgeon. - Physical Exam General: Alert, Oriented x3, Cooperative HEENT: Atraumatic, PERRLA, EOMI, Normocephalic Neck: Supple, No JVD, Negative Carotid Bruits Lungs: Clear to auscultation, Normal air movement Cardiovascular: Regular rate, No murmurs Abdomen: Bowel Sounds Present, Soft, Non Tender Extremities: No edema, Capillary Refill Less than 3 Seconds Skin: No rashes, No breakdown Musculoskeletal: No Tenderness to Palpation of Joints or Extremities Neurological: Cranial nerves II-XII grossly intact Psych/Mental Status: Normal Affect, Appropriate, Alert and oriented to time, place, person, mood and affect Vital Signs Temp Pulse Resp BP Pulse Ox 98.3 F 77 20 H 121/60 H 95 01/30/18 08:11 01/30/18 08:11 01/30/18 08:11 01/30/18 08:11 01/30/18 08:11 Oxygen Delivery Method Room Air Weight: 85.729 kg Body Mass Index (BMI) 27.8 Intake and Output for Last 24 Hours 01/28/18 01/29/18 01/30/18 23:59 23:59 23:59 Intake Total 360 / 360 Balance 360 / 360 Active Medications Acetaminophen (Tylenol) 1,000 mg PO TID [facility] Last Admin: 01/30/18 06:46 Dose: 1,000 mg Bisacodyl (Dulcolax) 10 mg RECTAL .PRN X 1 PRN PRN Reason: Constipation Enoxaparin Sodium (Lovenox) 40 mg SC DAILY [facility] Last Admin: 01/30/18 09:07 Dose: 40 mg Fentanyl (Duragesic Patch) 25 mcg TRANSDERM. Q3D [facility] Magnesium Hydroxide (Milk Of Magnesia) 30 ml PO .PRN X 1 PRN PRN Reason: Constipation [facility]it[facility] ([facility]amin) [facility] Last Admin: 01/30/18 09:06 Dose: 1 tablet Ondansetron HCl (Zofran) 8 mg PO Q8H PRN PRN PRN Reason: NAUSEA Oxycodone HCl (Oxyir) 10 mg PO Q4H PRN PRN PRN Reason: SEVERE PAIN (6-10/10) Last Admin: 01/27/18 23:02 Dose: 10 mg Pantoprazole Sodium (Protonix) 40 mg PO DAILY [facility] Last Admin: 01/30/18 09:07 Dose: 40 mg Senna/Docusate Sodium (Senokot-S, Autumn-Colace) 2 tablet PO BID [facility] Last Admin: 01/30/18 09:06 Dose: 1 tablet Tizanidine HCl (Zanaflex) 4 mg PO Q8H PRN PRN PRN Reason: MUSCLE SPASM Last Admin: 01/29/18 21:58 Dose: 4 mg Medical Necessity - Tobacco Use Smoking Status: Never smoker Assessment/Plan All Active Problems Bilateral ankle fractures (Acute) Fall from ladder (Acute) Debility status post open reduction and internal fixation of bilateral ankle fractures on 01/19/[address] Sharpe daily at [facility] with whom he is scheduled to follow-up on 02/04/18. The patient is here for essentially wheelchair transfers and would like to consider discharge 5 days from now however he understands that he may need more time in the rehab unit and is keeping an open mind about this. Goal of rehab is sikh of his prior level of functional independence. Plan: - DVT prophylaxis: Lovenox - PRN analgesics -> started on Fentanyl patch at 25mcq will increase to 50 mcq 2/2 increased acute pain => pain well controlled on current medications - Physical therapy and occupational therapy for transfers - Bowel protocol - PRN sleep aid - plan is discharge home when appropriate - B/L lower extremity cast, dressings are dry, clean, and intact - Plan is for discharge on Saturday home with home exercises for Physical therapy and occupational therapy, will have formal PT/OT once cast are removed.
--- NOTE | 2018-01-30 11:52 | CASEMGMT ---
Social Work Met with pt and explained that insurance has not yet given continued stay determination. Pt states he is feeling he is ready to return home and would like d/c date set for 01/31 regardless of insurance decision. SW spoke with physician, therapy and nursing and all are in agreement pt is ready for d/c home. Pt will be sent home with home exercise program and no further therapy is needed at this time. Pt states his will be home today for needed DME to be ordered and she will be available tomorrow for transport home. Phone call to Dayanna at [facility] and requested DME be delivered today. [facility] will contact pt and set up time to deliver equipment: wheelchair with elevated leg rests and removable arm rest, bedside commode with drop arms, sliding board, hospital bed and gel cushion (which will be shipped to pt house). No further d/c needs at this time. Plan: home 01/31/18 with . ESTEVAN Martinez
[2018-01-30] MEDS: fentaNYL 25 MCG Patch TRANSDERM. (11:55)
--- NOTE | 2018-01-30 12:14 | CASEMGMT ---
Insurance SW spoke with Lilo from [facility] who is requested more information on pt. LAWSON explained that pt choosing to d/c home tomorrow 01/31. Lilo stating she will extend pt stay to cover today with d/c tomorrow. No further clinical information will be needed. Auth # [id number] Pt made aware and agreeable ESTEVAN Martinez
[2018-01-30] MEDS: tiZANidine HCl 2 MG Tablet 4 MG PO ×2 (15:00→23:04)
[2018-01-30 22:00] VITALS: BP 128/75; PULSE 75; RESP 16; TEMP 36.9; O2SAT 97
[2018-01-31] MEDS: Enoxaparin 40 MG/0.4 ML Syringe SC (06:40)
[2018-01-31] MEDS: Acetaminophen 500 MG Tablet 1000 MG PO (06:41)
[2018-01-31 07:00] VITALS: BP 126/95; PULSE 88; RESP 17; TEMP 36.6; O2SAT 97
[2018-01-31] MEDS: Multivitamins,Therapeutic Tablet 1 TABLET PO (08:46)
[2018-01-31] MEDS: Pantoprazole Sodium 40 MG Tablet PO (08:46)
[2018-01-31] MEDS: Senna/Docusate Sodium 1 Tablet 2 TABLET PO (08:47)
--- NOTE | 2018-01-31 10:51 | PCM.RU.DC ---
Rehab Discharge Summary DATE OF ADMISSION: 01/23/18 DATE OF DISCHARGE: 01/31/18 - Rehab Diagnosis Bilateral Ankle Fracture Patient Problems: Active and Suspected Problems Bilateral ankle fractures (Acute) Fall from ladder (Acute) Subjective: Patient states pain is well controlled on current pain regime. He was made MOD I yesterday and did very well, he was able to dress himself do all his own personal care all at wheelchair level. - Physical Exam General: Alert, Oriented x3, Cooperative HEENT: Atraumatic, PERRLA, EOMI, Normocephalic Neck: Supple, No JVD, Negative Carotid Bruits Lungs: Clear to auscultation, Normal air movement Cardiovascular: Regular rate, No murmurs Abdomen: Bowel Sounds Present, Soft, Non Tender Extremities: No edema, Capillary Refill Less than 3 Seconds Skin: No rashes, No breakdown Musculoskeletal: No Tenderness to Palpation of Joints or Extremities Neurological: Cranial nerves II-XII grossly intact Psych/Mental Status: Normal Affect, Appropriate, Alert and oriented to time, place, person, mood and affect Vital Signs Temp Pulse Resp BP Pulse Ox 97.9 F 88 17 126/95 H 97 01/31/18 07:00 01/31/18 07:00 01/31/18 07:00 01/31/18 07:00 01/31/18 07:00 Oxygen Delivery Method Room Air Weight: 85.729 kg Body Mass Index (BMI) 27.8 Intake and Output for Last 24 Hours 01/29/18 01/30/18 01/31/18 23:59 23:59 23:59 Intake Total 960 / 960 360 / 360 Balance 960 / 960 360 / 360 Active Medications Acetaminophen (Tylenol) 1,000 mg PO TID [facility] Last Admin: 01/31/18 06:41 Dose: 1,000 mg Bisacodyl (Dulcolax) 10 mg RECTAL .PRN X 1 PRN PRN Reason: Constipation Enoxaparin Sodium (Lovenox) 40 mg SC DAILY@0600 [facility] Last Admin: 01/31/18 06:40 Dose: 40 mg Fentanyl (Duragesic Patch) 25 mcg TRANSDERM. Q3D [facility] Last Admin: 01/30/18 11:55 Dose: 25 mcg Magnesium Hydroxide (Milk Of Magnesia) 30 ml PO .PRN X 1 PRN PRN Reason: Constipation Multivitamins (Multivitamin) 1 tablet PO DAILYCM [facility] Last Admin: 01/31/18 08:46 Dose: 1 tablet Ondansetron HCl (Zofran) 8 mg PO Q8H PRN PRN PRN Reason: NAUSEA Oxycodone HCl (Oxyir) 10 mg PO Q4H PRN PRN PRN Reason: SEVERE PAIN (6-10/10) Last Admin: 01/27/18 23:02 Dose: 10 mg Pantoprazole Sodium (Protonix) 40 mg PO DAILY [facility] Last Admin: 01/31/18 08:46 Dose: 40 mg Senna/Docusate Sodium (Senokot-S, Autumn-Colace) 2 tablet PO BID [facility] Last Admin: 01/31/18 08:47 Dose: 1 tablet Tizanidine HCl (Zanaflex) 4 mg PO Q8H PRN PRN PRN Reason: MUSCLE SPASM Last Admin: 01/30/18 23:04 Dose: 4 mg Discharge Diet: No Restrictions Discharge Activity: May Not Drive, May not drive while taking narcotic pain medications., May Not Shower, - - Use Wheelchair, may not take a Tub bath Weight Bearing Status: No weight bearing - B/L lower extremity Keep extremity elevated above heart level: Legs - Both Call your doctor if your incision/area has: Increased Pain/ Swelling Call your doctor if you observe: Fever of 101 or Higher, Coldness, Increased Pain, Numbness or Tingling, Change in Color, Inability to urinate, Inability to have a bowel movement, Using more than one pad per hour, Shortness of breath, Dizziness, Fainting spells, Swelling in the ankles, Chest pain, Prolonged hiccoughing, Increased palpitations (irregular heartbeat), Calf discomfort, Uncontrolled pain Home Medications: Medications to take at Discharge Multivitamins,Therapeutic [Multivitamin] 1 tablet PO DAILYCM tablet 01/31/18 Oxycodone [Oxyir] 10 mg PO Q4H PRN PRN 7 Days #28 tab 01/31/18 Pantoprazole Sodium [Protonix] 40 mg PO DAILY #30 tab 01/31/18 Tizanidine HCl [Zanaflex] 4 mg PO Q8H PRN PRN #30 tab 01/31/18 fentaNYL patch [Duragesic patch] 25 mcg TRANSDERM. Q3D 6 Days #2 patch 01/31/18 Following Prescrptions Were Given to Patient: Oxycodone [Oxyir] 10 mg PO Q4H PRN PRN 7 Days #28 tab PRN Reason: Severe Pain (6-12/04) Tizanidine HCl [Zanaflex] 4 mg PO Q8H PRN PRN #30 tab PRN Reason: Muscle Spasm fentaNYL patch [Duragesic patch] 25 mcg TRANSDERM. Q3D 6 Days #2 patch Pantoprazole Sodium [Protonix] 40 mg PO DAILY #30 tab Primary Care Physician: Allison Randall, VADIM-C [Primary Care Provider] - Disposition: Home - Pt will be sent home with home exercise program and no further therapy is needed at this time. The following equipment will be delivered to the patient home, wheelchair with elevated leg rests and removable arm rest, bedside commode with drop arms, sliding board, hospital bed and gel cushion (which will be shipped to pt house). Minutes spent on discharge:: 40 Patient Condition:: Good Rehab Course Mr. Hansen is a 47-year-old white male who was previously healthy, who is admitted to the rehab unit for debility after bilateral ankle fractures status post open reduction and internal fixation performed by Dr. Sharpe daily on 09/18/17. He apparently was elevated approximately 12 feet and fell off of a ladder landing on his feet. He suffered bilateral ankle fractures and required surgery as above. 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 He lives at home with his and several children 3 of whom are adults. He also has family members that live next door. He lives in a single level house and already has a ramp installed. He denies any other complaints other than pain he has experienced however some pain when he gets behind on his analgesics. Bowels and bladder are unaffected and he has no other complaints. While in the Rehab Unit () his other medical conditions were monitored. While in the Rehab Unit he improved with therapy and gained strength. His care in the rehab was uncomplicated and he was discharged home on 01/31/18 to complete the reminder of his care as an outpatient. Pt will be sent home with home exercise program and no further therapy is needed at this time, until cast are removed. He will be sent home with the following equipment: wheelchair with elevated leg rests and removable arm rest, bedside commode with drop arms, sliding board, hospital bed and gel cushion (which will be shipped to pt [place]). No further d/c needs at this time, until casts are removed. Summary of Care: - DVT prophylaxis: Lovenox - PRN analgesics -> started on Fentanyl patch at 25mcq will increase to 50 mcq 2/2 increased acute pain => pain well controlled on current medications - Physical therapy and occupational therapy for transfers - Bowel protocol - PRN sleep aid - plan is discharge home when appropriate - B/L lower extremity cast, dressings are dry, clean, and intact - Plan is for discharge on Saturday home with home exercises for Physical therapy and occupational therapy, will have formal PT/OT once cast are removed. Summary of Therapy Sessions: With Physical therapy, He is doing very well. He is able to do all his own transfers in and out of bed at stand by assist. He is able to position the wheel chair, place the sliding board, remove his arm rest, and leg rest, and transfer himself all at stand by assist. He has gone 325 feet in the wheel chair, up ramps, across carpeting and out side in the environment all at stand by assist. With Occupational therapy, He is able to do all his own personal care at supervision level assist. With Nursing he is still having some acute surgical pain, will increase his Fentanyl patch to 50mcq, schedule Tylenol 1,000 mg TID. Insurance update is 01/29, patient would like stay longer if allowed, he would benefit from additional upper body strengthening. Meaningful Use Info Meaningful Use Diagnoses (Choose all that apply): None applicable
--- NOTE | 2018-01-31 10:55 | DS.PCM_ITS ---
Rehab Discharge Summary DATE OF ADMISSION: 01/23/18 DATE OF DISCHARGE: 01/31/18 - Rehab Diagnosis Bilateral Ankle Fracture Patient Problems: Active and Suspected Problems Bilateral ankle fractures (Acute) Fall from ladder (Acute) Subjective: Patient states pain is well controlled on current pain regime. He was made MOD I yesterday and did very well, he was able to dress himself do all his own personal care all at wheelchair level. - Physical Exam General: Alert, Oriented x3, Cooperative HEENT: Atraumatic, PERRLA, EOMI, Normocephalic Neck: Supple, No JVD, Negative Carotid Bruits Lungs: Clear to auscultation, Normal air movement Cardiovascular: Regular rate, No murmurs Abdomen: Bowel Sounds Present, Soft, Non Tender Extremities: No edema, Capillary Refill Less than 3 Seconds Skin: No rashes, No breakdown Musculoskeletal: No Tenderness to Palpation of Joints or Extremities Neurological: Cranial nerves II-XII grossly intact Psych/Mental Status: Normal Affect, Appropriate, Alert and oriented to time, place, person, mood and affect Vital Signs Temp Pulse Resp BP Pulse Ox 97.9 F 88 17 126/95 H 97 01/31/18 07:00 01/31/18 07:00 01/31/18 07:00 01/31/18 07:00 01/31/18 07:00 Oxygen Delivery Method Room Air Weight: 85.729 kg Body Mass Index (BMI) 27.8 Intake and Output for Last 24 Hours 01/29/18 01/30/18 01/31/18 23:59 23:59 23:59 Intake Total 960 / 960 360 / 360 Balance 960 / 960 360 / 360 Active Medications Acetaminophen (Tylenol) 1,000 mg PO TID [facility] Last Admin: 01/31/18 06:41 Dose: 1,000 mg Bisacodyl (Dulcolax) 10 mg RECTAL .PRN X 1 PRN PRN Reason: Constipation Enoxaparin Sodium (Lovenox) 40 mg SC DAILY@0600 [facility] Last Admin: 01/31/18 06:40 Dose: 40 mg Fentanyl (Duragesic Patch) 25 mcg TRANSDERM. Q3D [facility] Last Admin: 01/30/18 11:55 Dose: 25 mcg Magnesium Hydroxide (Milk Of Magnesia) 30 ml PO .PRN X 1 PRN PRN Reason: Constipation Multivitamins (Multivitamin) 1 tablet PO DAILYCM [facility] Last Admin: 01/31/18 08:46 Dose: 1 tablet Ondansetron HCl (Zofran) 8 mg PO Q8H PRN PRN PRN Reason: NAUSEA Oxycodone HCl (Oxyir) 10 mg PO Q4H PRN PRN PRN Reason: SEVERE PAIN (6-10/10) Last Admin: 01/27/18 23:02 Dose: 10 mg Pantoprazole Sodium (Protonix) 40 mg PO DAILY [facility] Last Admin: 01/31/18 08:46 Dose: 40 mg Senna/Docusate Sodium (Senokot-S, Autumn-Colace) 2 tablet PO BID [facility] Last Admin: 01/31/18 08:47 Dose: 1 tablet Tizanidine HCl (Zanaflex) 4 mg PO Q8H PRN PRN PRN Reason: MUSCLE SPASM Last Admin: 01/30/18 23:04 Dose: 4 mg Discharge Diet: No Restrictions Discharge Activity: May Not Drive, May not drive while taking narcotic pain medications., May Not Shower, - - Use Wheelchair, may not take a Tub bath Weight Bearing Status: No weight bearing - B/L lower extremity Keep extremity elevated above heart level: Legs - Both Call your doctor if your incision/area has: Increased Pain/ Swelling Call your doctor if you observe: Fever of 101 or Higher, Coldness, Increased Pain, Numbness or Tingling, Change in Color, Inability to urinate, Inability to have a bowel movement, Using more than one pad per hour, Shortness of breath, Dizziness, Fainting spells, Swelling in the ankles, Chest pain, Prolonged hiccoughing, Increased palpitations (irregular heartbeat), Calf discomfort, Uncontrolled pain Home Medications: Medications to take at Discharge Multivitamins,Therapeutic [Multivitamin] 1 tablet PO DAILYCM tablet 01/31/18 Oxycodone [Oxyir] 10 mg PO Q4H PRN PRN 7 Days #28 tab 01/31/18 Pantoprazole Sodium [Protonix] 40 mg PO DAILY #30 tab 01/31/18 Tizanidine HCl [Zanaflex] 4 mg PO Q8H PRN PRN #30 tab 01/31/18 fentaNYL patch [Duragesic patch] 25 mcg TRANSDERM. Q3D 6 Days #2 patch 01/31/18 Following Prescrptions Were Given to Patient: Oxycodone [Oxyir] 10 mg PO Q4H PRN PRN 7 Days #28 tab PRN Reason: Severe Pain (6-12/04) Tizanidine HCl [Zanaflex] 4 mg PO Q8H PRN PRN #30 tab PRN Reason: Muscle Spasm fentaNYL patch [Duragesic patch] 25 mcg TRANSDERM. Q3D 6 Days #2 patch Pantoprazole Sodium [Protonix] 40 mg PO DAILY #30 tab Primary Care Physician: Allison Randall, VADIM-C [Primary Care Provider] - Disposition: Home - Pt will be sent home with home exercise program and no further therapy is needed at this time. The following equipment will be delivered to the patient home, wheelchair with elevated leg rests and removable arm rest, bedside commode with drop arms, sliding board, hospital bed and gel cushion (which will be shipped to pt house). Minutes spent on discharge:: 40 Patient Condition:: Good Rehab Course Mr. Hansen is a 47-year-old white male who was previously healthy, who is admitted to the rehab unit for debility after bilateral ankle fractures status post open reduction and internal fixation performed by Dr. Sharpe daily on 09/18/17. He apparently was elevated approximately 12 feet and fell off of a ladder landing on his feet. He suffered bilateral ankle fractures and required surgery as above. 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 He lives at home with his and several children 3 of whom are adults. He also has family members that live next door. He lives in a single level house and already has a ramp installed. He denies any other complaints other than pain he has experienced however some pain when he gets behind on his analgesics. Bowels and bladder are unaffected and he has no other complaints. While in the Rehab Unit () his other medical conditions were monitored. While in the Rehab Unit he improved with therapy and gained strength. His care in the rehab was uncomplicated and he was discharged home on 01/31/18 to complete the reminder of his care as an outpatient. Pt will be sent home with home exercise program and no further therapy is needed at this time, until cast are removed. He will be sent home with the following equipment: wheelchair with elevated leg rests and removable arm rest, bedside commode with drop arms, sliding board, hospital bed and gel cushion (which will be shipped to pt [place]). No further d/c needs at this time, until casts are removed. Summary of Care: - DVT prophylaxis: Lovenox - PRN analgesics -> started on Fentanyl patch at 25mcq will increase to 50 mcq 2/2 increased acute pain => pain well controlled on current medications - Physical therapy and occupational therapy for transfers - Bowel protocol - PRN sleep aid - plan is discharge home when appropriate - B/L lower extremity cast, dressings are dry, clean, and intact - Plan is for discharge on Saturday home with home exercises for Physical therapy and occupational therapy, will have formal PT/OT once cast are removed. Summary of Therapy Sessions: With Physical therapy, He is doing very well. He is able to do all his own transfers in and out of bed at stand by assist. He is able to position the wheel chair, place the sliding board, remove his arm rest, and leg rest, and transfer himself all at stand by assist. He has gone 325 feet in the wheel chair, up ramps, across carpeting and out side in the environment all at stand by assist. With Occupational therapy, He is able to do all his own personal care at supervision level assist. With Nursing he is still having some acute surgical pain, will increase his Fentanyl patch to 50mcq, schedule Tylenol 1,000 mg TID. Insurance update is 01/29, patient would like stay longer if allowed, he would benefit from additional upper body strengthening. Meaningful Use Info Meaningful Use Diagnoses (Choose all that apply): None applicable
--- NOTE | 2018-01-31 11:59 | DCINST_ITS ---
- Discharge Diagnoses Current Active Problems: Current Active and Chronic Problems Bilateral ankle fractures (Acute) Fall from ladder (Acute) Reason(s) for Visit for Discharge Instructions: Bilateral Ankle Fractures You will use the following diet at home:: Regular Your food should be the consistency of: Regular Your liquids should be the consistency of: Regular/Thin Discharge Activity: May Not Drive, May not drive while taking narcotic pain medications., May Not Shower, - - Use Wheelchair, may not take a Tub bath Weight Bearing Status: No weight bearing - B/L lower extremity Keep extremity elevated above heart level: Legs - Both Call your doctor if your incision/area has: Increased Pain/ Swelling Call your doctor if you observe: Fever of 101 or Higher, Coldness, Increased Pain, Numbness or Tingling, Change in Color, Inability to urinate, Inability to have a bowel movement, Using more than one pad per hour, Shortness of breath, Dizziness, Fainting spells, Swelling in the ankles, Chest pain, Prolonged hiccoughing, Increased palpitations (irregular heartbeat), Calf discomfort, Uncontrolled pain Allergies/Adverse Reactions: Allergies No Known Allergies Allergy (Verified 01/23/18 21:08) Medications to take at Discharge Multivitamins,Therapeutic [Multivitamin] 1 tablet PO DAILYCM tablet 01/31/18 Oxycodone [Oxyir] 10 mg PO Q4H PRN PRN 7 Days #28 tab 01/31/18 Pantoprazole Sodium [Protonix] 40 mg PO DAILY #30 tab 01/31/18 Tizanidine HCl [Zanaflex] 4 mg PO Q8H PRN PRN #30 tab 01/31/18 fentaNYL patch [Duragesic patch] 25 mcg TRANSDERM. Q3D 6 Days #2 patch 01/31/18 The following prescriptions were given: Oxycodone [Oxyir] 10 mg PO Q4H PRN PRN 7 Days #28 tab PRN Reason: Severe Pain (6-12/04) Tizanidine HCl [Zanaflex] 4 mg PO Q8H PRN PRN #30 tab PRN Reason: Muscle Spasm fentaNYL patch [Duragesic patch] 25 mcg TRANSDERM. Q3D 6 Days #2 patch Pantoprazole Sodium [Protonix] 40 mg PO DAILY #30 tab Primary Care Physician: Allison Randall NP-C [Primary Care Provider] - Test Results: Test results from this visit will be discussed in further detail at your follow- up appointment, if applicable. Proposed Discharge Date: 01/31/18
[2018-01-31 12:00] VITALS: BP 126/95; PULSE 88; RESP 17; TEMP 36.6; O2SAT 95
--- NOTE | 2018-02-04 16:45 | CASEMGMT ---
Insurance Notified insurance of patient discharge to home with family on 01/31/18. Auth#[id number] ESTEVAN Iqbal, [employer]
--- OUTSIDE RECORDS SUMMARY | 2018-03-20 23:37 | XMS RPT_ITS ---
:1970 Author Organization [facility] Care Team Providers Name Role Phone DR. EVERETT YBARRA DO Attending Unavailable PHYSICIAN, NOT RECORDED Primary Care Unavailable PHYSICIAN, NOT RECORDED Primary Care Unavailable MICHAEL TAVERAS MD Consulting Unavailable MICHAEL TAVERAS MD Attending Unavailable MICHAEL TAVERAS MD Admitting Unavailable DENIS CHIRINOS MD Consulting Unavailable Allsion Randall Attending Unavailable Allison Randall Referring Unavailable Allison Randall Consulting Unavailable Gilberto Valdivia Admitting Unavailable Gilberto Valdivia Attending Unavailable Allison Randall Primary Care Unavailable Gilberto Valdivia Admitting Unavailable Jose Angel Hearn Attending Unavailable Allison Randall Primary Care Unavailable Gilberto Valdivia Consulting Unavailable Purpose Purpose PROBLEMS PROBLEMS DATE TYPE CONDITION / CODE ATTENDING STATUS SOURCE 01/31/2018 Unknown S82.891A - Other Gilberto Valdivia Active Shanelle fracture of Community right lower leg, Hospital initial Repository encounter for closed fracture / S82.891A(ICD-10) 01/31/2018 Unknown S82.892A - Other Gilberto Valdivia Active Shanelle fracture of left Community lower leg, Hospital initial Repository encounter for closed fracture / S82.892A(ICD-10) PROCEDURES PROCEDURES No Procedure Records FoundVITAL SIGNS VITAL SIGNS No Vital Signs Records FoundRESULTS RESULTS DISCHARGE SUMMARY Observed: 01/31/2018 Status: C Source: SHANELLE 12:47 PM [facility] [place], [place] REPOSITORY [facility] Medical Records Department [address] [facility] [place] [address] Discharge Summary 01/31/18 1051 MR#: [id number] Acct: [id number] Name: JONO HANSEN Rep #: [id number] : 1970 47 From: Flor Donnelly NP-Juma PCP: Allison Randall NP Status: ADM IN Location: [place] [address] ADDENDUM by Grace Voss MD on 01/31/18 at 1246 I have personally examined the patient at bedside. Please see VADIM Donnelly's discharge note as below for further complete details. I have discussed the management plan for the patient in detail with VADIM Donnelly and please see the plan as noted below. Fall precautions. Further medical management per hospitalist recommendations. Had uncomplicated rehab stay, follow up with orthopedic surgery and PCP as outpatient following discharge. 01/31/18 1247 <Electronically signed by Dave Voss MD> Date Dave Voss MD cc: Allison Randall NP; VADIM Donnelly; Grace Voss MD * Addendum Rehab Discharge Summary DATE OF ADMISSION: 01/23/18 DATE OF DISCHARGE: 01/31/18 - Rehab Diagnosis Bilateral Ankle Fracture Patient Problems: Active and Suspected Problems Bilateral ankle fractures (Acute) Fall from ladder (Acute) Subjective: Patient states pain is well controlled on current pain regime. He was made MOD I yesterday and did very well, he was able to dress himself do all his own personal care all at wheelchair level. - Physical Exam General: Alert, Oriented x3, Cooperative HEENT: Atraumatic, PERRLA, EOMI, Normocephalic Neck: Supple, No JVD, Negative Carotid Bruits Lungs: Clear to auscultation, Normal air movement Cardiovascular: Regular rate, No murmurs Abdomen: Bowel Sounds Present, Soft, Non Tender Extremities: No edema, Capillary Refill Less than 3 Seconds Skin: No rashes, No breakdown Musculoskeletal: No Tenderness to Palpation of Joints or Extremities Neurological: Cranial nerves II-XII grossly intact Psych/Mental Status: Normal Affect, Appropriate, Alert and oriented to time, place, person, mood and affect Vital Signs Temp Pulse Resp BP Pulse Ox 97.9 F 88 17 126/95 H 97 01/31/18 07:00 01/31/18 07:00 01/31/18 07:00 01/31/18 07:00 01/31/18 07:00 Oxygen Delivery Method Room Air Weight: 85.729 kg Body Mass Index (BMI) 27.8 Intake and Output for Last 24 Hours Intake Total 960 / 960 360 / 360 Balance 960 / 960 360 / 360 Active Medications Acetaminophen (Tylenol) 1,000 mg PO TID [facility] Last Admin: 01/31/18 06:41 Dose: 1,000 mg Bisacodyl (Dulcolax) 10 mg RECTAL .PRN X 1 PRN PRN Reason: Constipation Enoxaparin Sodium (Lovenox) 40 mg SC DAILY@0600 [facility] Last Admin: 01/31/18 06:40 Dose: 40 mg Fentanyl (Duragesic Patch) 25 mcg TRANSDERM. Q3D [facility] Last Admin: 01/30/18 11:55 Dose: 25 mcg Magnesium Hydroxide (Milk Of Magnesia) 30 ml PO .PRN X 1 PRN PRN Reason: Constipation Multivitamins (Multivitamin) 1 tablet PO DAILYCM [facility] Last Admin: 01/31/18 08:46 Dose: 1 tablet Ondansetron HCl (Zofran) 8 mg PO Q8H PRN PRN PRN Reason: NAUSEA Oxycodone HCl (Oxyir) 10 mg PO Q4H PRN PRN PRN Reason: SEVERE PAIN (6-10/10) Last Admin: 01/27/18 23:02 Dose: 10 mg Pantoprazole Sodium (Protonix) 40 mg PO DAILY [facility] Last Admin: 01/31/18 08:46 Dose: 40 mg Senna/Docusate Sodium (Senokot-S, Autumn-Colace) 2 tablet PO BID [facility] Last Admin: 01/31/18 08:47 Dose: 1 tablet Tizanidine HCl (Zanaflex) 4 mg PO Q8H PRN PRN PRN Reason: MUSCLE SPASM Last Admin: 01/30/18 23:04 Dose: 4 mg Discharge Diet: No Restrictions Discharge Activity: May Not Drive, May not drive while taking narcotic pain medications., May Not Shower, - - Use Wheelchair, may not take a Tub bath Weight Bearing Status: No weight bearing - B/L lower extremity Keep extremity elevated above heart level: Legs - Both Call your doctor if your incision/area has: Increased Pain/ Swelling Call your doctor if you observe: Fever of 101 or Higher, Coldness, Increased Pain, Numbness or Tingling, Change in Color, Inability to urinate, Inability to have a bowel movement, Using more than one pad per hour, Shortness of breath, Dizziness, Fainting spells, Swelling in the ankles, Chest pain, Prolonged hiccoughing, Increased palpitations (irregular heartbeat), Calf discomfort, Uncontrolled pain Home Medications: Medications to take at Discharge Multivitamins,Therapeutic [Multivitamin] 1 tablet PO DAILYCM tablet 01/31/18 Oxycodone [Oxyir] 10 mg PO Q4H PRN PRN 7 Days #28 tab 01/31/18 Pantoprazole Sodium [Protonix] 40 mg PO DAILY #30 tab 01/31/18 Tizanidine HCl [Zanaflex] 4 mg PO Q8H PRN PRN #30 tab 01/31/18 fentaNYL patch [Duragesic patch] 25 mcg TRANSDERM. Q3D 6 Days #2 patch 01/31/18 Following Prescrptions Were Given to Patient: Oxycodone [Oxyir] 10 mg PO Q4H PRN PRN 7 Days #28 tab PRN Reason: Severe Pain (6-12/04) Tizanidine HCl [Zanaflex] 4 mg PO Q8H PRN PRN #30 tab PRN Reason: Muscle Spasm fentaNYL patch [Duragesic patch] 25 mcg TRANSDERM. Q3D 6 Days #2 patch Pantoprazole Sodium [Protonix] 40 mg PO DAILY #30 tab Primary Care Physician: Allison Randall, BULK TANK DRIVER-C [Primary Care Provider] - Disposition: Home - Pt will be sent home with home exercise program and no further therapy is needed at this time. The following equipment will be delivered to the patient home, wheelchair with elevated leg rests and removable arm rest, bedside commode with drop arms, sliding board, hospital bed and gel cushion (which will be shipped to [facility]). Minutes spent on discharge:: 40 Patient Condition:: Good Rehab Course Mr. Hansen is a 47-year-old white male who was previously healthy, who is admitted to the rehab unit for debility after bilateral ankle fractures status post open reduction and internal fixation performed by Dr. Rodriguez daily on 09/18/17. He apparently was elevated approximately 12 feet and fell off of a ladder landing on his feet. He suffered bilateral ankle fractures and required surgery as above. He normally weight works at [employer] and is completely healthy. He lives at home with his and several children 3 of whom are adults. He also has family members that live next door. He lives in a single level house and already has a ramp installed. He denies any other complaints other than pain he has experienced however some pain when he gets behind on his analgesics. Bowels and bladder are unaffected and he has no other complaints. While in the Rehab Unit () his other medical conditions were monitored. While in the Rehab Unit he improved with therapy and gained strength. His care in the rehab was uncomplicated and he was discharged home on 01/31/18 to complete the reminder of his care as an outpatient. Pt will be sent home with home exercise program and no further therapy is needed at this time, until cast are removed. He will be sent home with the following equipment: wheelchair with elevated leg rests and removable arm rest, bedside commode with drop arms, sliding board, hospital bed and gel cushion (which will be shipped to [place]). No further d/c needs at this time, until casts are removed. Summary of Care: - DVT prophylaxis: Lovenox - PRN analgesics -> started on Fentanyl patch at 25mcq will increase to 50 mcq 2/2 increased acute pain => pain well controlled on current medications - Physical therapy and occupational therapy for transfers - Bowel protocol - PRN sleep aid - plan is discharge home when appropriate - B/L lower extremity cast, dressings are dry, clean, and intact - Plan is for discharge on Saturday home with home exercises for Physical therapy and occupational therapy, will have formal PT/OT once cast are removed. Summary of Therapy Sessions: With Physical therapy, He is doing very well. He is able to do all his own transfers in and out of bed at stand by assist. He is able to position the wheel chair, place the sliding board, remove his arm rest, and leg rest, and transfer himself all at stand by assist. He has gone 325 feet in the wheel chair, up ramps, across carpeting and out side in the environment all at stand by assist. With Occupational therapy, He is able to do all his own personal care at supervision level assist. With Nursing he is still having some acute surgical pain, will increase his Fentanyl patch to 50mcq, schedule Tylenol 1,000 mg TID. Insurance update is 01/29, patient would like stay longer if allowed, he would benefit from additional upper body strengthening. Meaningful Use Info Meaningful Use Diagnoses (Choose all that apply): None applicable 01/31/18 1202 <Electronically signed by Flor Donnelly BULK TANK DRIVER-C> Date Flor Donnelly BULK TANK DRIVER-C 01/31/18 1244<Electronically signed by Dave Voss MD> Cosigner Signature (if applicable): Date Daev Voss MD CC: Allison Randall NP; VADIM Donnelly; Grace Voss MD Addendum DISCHARGE INSTRUCTION Observed: 01/31/2018 Status: F Source: HAROLD 11:59 AM [facility] [place], [place] REPOSITORY [facility] Medical Records Department [address] [place] [address] Instructions for Home/Discharge Instructions 01/31/18 1153 MR#: [id number] Acct: [id number] Name: JONO HANSEN Rep #: [id number] : 1970 47 From: Flor LIMA PCP: Allison Randall NP Status: ADM IN - Discharge Diagnoses Current Active Problems: Current Active and Chronic Problems Bilateral ankle fractures (Acute) Fall from ladder (Acute) Reason(s) for Visit for Discharge Instructions: Bilateral Ankle Fractures You will use the following diet at home:: Regular Your food should be the consistency of: Regular Your liquids should be the consistency of: Regular/Thin Discharge Activity: May Not Drive, May not drive while taking narcotic pain medications., May Not Shower, - - Use Wheelchair, may not take a Tub bath Weight Bearing Status: No weight bearing - B/L lower extremity Keep extremity elevated above heart level: Legs - Both Call your doctor if your incision/area has: Increased Pain/ Swelling Call your doctor if you observe: Fever of 101 or Higher, Coldness, Increased Pain, Numbness or Tingling, Change in Color, Inability to urinate, Inability to have a bowel movement, Using more than one pad per hour, Shortness of breath, Dizziness, Fainting spells, Swelling in the ankles, Chest pain, Prolonged hiccoughing, Increased palpitations (irregular heartbeat), Calf discomfort, Uncontrolled pain Allergies/Adverse Reactions: Allergies No Known Allergies Allergy (Verified 01/23/18 21:08) Medications to take at Discharge Multivitamins,Therapeutic [Multivitamin] 1 tablet PO DAILYCM tablet 01/31/18 Oxycodone [Oxyir] 10 mg PO Q4H PRN PRN 7 Days #28 tab 01/31/18 Pantoprazole Sodium [Protonix] 40 mg PO DAILY #30 tab 01/31/18 Tizanidine HCl [Zanaflex] 4 mg PO Q8H PRN PRN #30 tab 01/31/18 fentaNYL patch [Duragesic patch] 25 mcg TRANSDERM. Q3D 6 Days #2 patch 01/31/18 The following prescriptions were given: Oxycodone [Oxyir] 10 mg PO Q4H PRN PRN 7 Days #28 tab PRN Reason: Severe Pain (6-12/04) Tizanidine HCl [Zanaflex] 4 mg PO Q8H PRN PRN #30 tab PRN Reason: Muscle Spasm fentaNYL patch [Duragesic patch] 25 mcg TRANSDERM. Q3D 6 Days #2 patch Pantoprazole Sodium [Protonix] 40 mg PO DAILY #30 tab Primary Care Physician: Allison Randall NP-C [Primary Care Provider] - Test Results: Test results from this visit will be discussed in further detail at your follow-up appointment, if applicable. Proposed Discharge Date: 01/31/18 01/31/18 1159 <Electronically signed by Flor LIMA> Date Flor LIMA CC: Allison Randall NP HISTORY AND PHYSICAL Observed: 01/24/2018 Status: F Source: HAROLD EXAM 1:10 PM [facility] [place] [place] REPOSITORY [facility] Medical Records Department [address] [place] [id number] History and Physical 01/24/18 1258 MR#: [id number] Acct: [id number] Name: JONO HANSEN Rep #: [id number] : 1970 47 From: Gilberto Valdivia MD PCP: Allison Randall NP Status: ADM IN Location: [place] [address] History of Present Illness Date of Admission: 01/23/18 Chief Complaint: Bilateral lower extremity pain and debility Mr. Hansen is a 47-year-old white male who was previously healthy, who is admitted to the rehab unit for debility after bilateral ankle fractures status post open reduction and internal fixation performed by Dr. Rodriguez daily on 09/18/17. He apparently was elevated approximately 12 feet and fell off of a ladder landing on his feet. He suffered bilateral ankle fractures and required surgery as above. He normally weight works at [employer] and is completely healthy. He lives at home with his and several children 3 of whom are adults. He also has family members that live next door. He lives in a single level house and already has a ramp installed. He denies any other complaints other than pain he has experienced however some pain when he gets behind on his analgesics. Bowels and bladder are unaffected and he has no other complaints. Past Medical History Allergies No Known Allergies Allergy (Verified 01/23/18 21:08) Surgical History: no surgical history Psychiatric History: No pertinent psych hx Lives: With Family Smoking Status: Never smoker Alcohol: None Drugs: None Review of Systems Constitutional: Denies: Chills, Fever, Weight Change HEENT: Denies: Head Aches, Sinus Congestion, Sinus Drainage Cardiovascular: Denies: Chest Pain, Palpitations Respiratory: Denies: Cough, Shortness of breath at rest, Sputum production Gastrointestinal: Denies: Abdominal Pain, Nausea, Vomiting Genitourinary: Denies: Dysuria Musculoskeletal: Reports: Joint Pain. Denies: Joint Tenderness Skin: Denies: Rash, Wounds Neurological: Denies: Numbness, Tingling, Focal weakness Psychiatric: Denies: Anxiety, Depression, Homicidal Ideations, Suicidal Ideations Hematologic/ Lymphatic: Denies: Easy Bruising, Easy Bleeding VTE Information - Inpt Only VTE Present on Admission: Yes VTE Pharm Prophylaxis ordered?: Yes Patient Problems: Active and Suspected Problems Bilateral ankle fractures (Acute) Fall from ladder (Acute) - Physical Exam General: Alert, Oriented x3, Cooperative, No apparent distress Neurological: Cranial nerves II-XII grossly intact Psych/Mental Status: Normal Affect Vital Signs Temp Pulse Resp BP Pulse Ox 36.4 C L 90 18 146/78 H 98 01/24/18 07:00 01/24/18 07:00 01/24/18 07:00 01/24/18 07:00 01/24/18 07:00 Oxygen Delivery Method Room Air Weight: 85.729 kg Body Mass Index (BMI) 27.8 Intake and Output for Last 24 Hours Intake Total 240 / 240 360 / 360 Output Total 300 / 300 950 / 950 Balance -60 / -60 -590 / -590 Laboratory Tests Past 24 Hrs WBC 8.3 RBC 4.62 Hgb 13.4 Hct 40.3 Current Medications Generic Name Dose Route Start Last Admin Assessment/Plan All Active Problems Bilateral ankle fractures (Acute) Fall from ladder (Acute) Debility status post open reduction and internal fixation of bilateral ankle fractures on 01/19/[address] Rodriguez daily at [facility] with whom he is scheduled to follow-up on 02/04/18. The patient is here for essentially wheelchair transfers and would like to consider discharge 5 days from now however he understands that he may need more time in the rehab unit and is keeping an open mind about this. Goal of rehab is jew of his prior level of functional independence. Plan: DVT prophylaxis: Lovenox PRN analgesics Physical therapy and occupational therapy for transfers Bowel protocol PRN sleep aid 01/24/18 1310 <Electronically signed by Gilberto Valdivia MD> Date Gilberto Valdivia MD Cosigner Signature: Date (if applicable) CC: Allison Randall BULK TANK DRIVER; Gilberto Valdivia MD Signed CBC-COMPLETE BLOOD CNT Collected: 01/24/2018 Status: F Source: SHANELLE NO DIFF 5:20 AM [facility] [place], [place] REPOSITORY TYPE CODE TESTS RESULT OUT OF RANGE REFERENCE UNITS LAB L100.1000 4.4-11.0 K/mm3 Normal WBC 8.3 LAB L100.1200 4.6-6.2 M/mm3 Normal RBC 4.62 LAB L100.1300 13.0-16.5 g/dl Normal HGB 13.4 LAB L100.1400 40-54 % Normal HCT 40.3 LAB L100.1500 80-94 fL Normal MCV 87.2 LAB L100.1600 27.0-32.0 pg Normal MCH 29.0 LAB L100.1700 32-36 g/gl Normal MCHC 33.3 LAB L100.1810 11.6-14.6 % Normal RDW CV 12.5 LAB L100.1820 35.1-43.9 fl Normal RDW SD 39.8 LAB L100.1900 150-450 K/mm3 Normal PLT 221 LAB L100.2000 6.2-12.0 fl Normal MPV 10.5 Performed By: #### L100.0500 #### [facility] [address] [facility] [place], [address] BASIC METABOLIC Collected: 01/24/2018 Status: F Source: SHANELLE PROFILE ([facility]) 5:20 AM [facility] [place], [place] REPOSITORY TYPE CODE TESTS RESULT OUT OF RANGE REFERENCE UNITS LAB L501.0100 74-106 mg/dL High GLU 110 Result Comment: Fasting Glucose result from 100 to 125 mg/dL suggests IMPAIRED HOMEOSTASIS per A.D.A. criteria. Please note revised GLUCOSE reference range effective 2017. LAB L501.1000 7-18 mg/dL Normal BUN 11 LAB L501.1100 0.70-1.30 mg/dL Normal CREAT,SERUM 0.79 Result Comment: The validity of the calculated GFR AND GFRAA in patients over 70 years has not been determined. Clinical correlation is essential. LAB L501.1110 >60 mL/min Normal EST GFR 112 Result Comment: Non- GFR Calc LAB L501.1115 >60 mL/min Normal EST GFR - AA 136 Result Comment: GFR Calc LAB L501.1255 ml/min Normal Estimated CRCL 118.08 LAB L501.1300 10-20 RATIO BUN/CRE Normal 13.9 LAB L501.2200 8.5-10 mg/dL .1 CA Normal 9.2 LAB L501.5300 136-14 mmol/L 5 NA Normal 139 LAB L501.5600 3.5-5. mmol/L 1 K Normal 4.3 LAB L501.5900 98-107 mmol/L CL Normal 101 LAB L501.6100 21.0-3 mmol/L 2.0 CO2 Normal 30.0 LAB L501.6200 5-15 GAP Normal 8 Performed By: #### L500.2500 #### [facility] [address] [facility] [address] [facility] [place], [address] CBC Collected: 01/20/2018 Status: F Source: [facility] 4:40 AM [facility] REPOSITORY TYPE CODE TESTS RESULT OUT OF REFERENCE UNITS RANGE LAB WBC(LOINC) 4.50-10.80 10 3/mcL High WBC 12.10 LAB RBCCT(LOINC 4.50-6.00 10 6/mcL ) RBC 4.79 LAB HGB(LOINC) 13.0-17.5 G/dL Hgb 14.0 LAB HCT(LOINC) 40.0-52.0 % Hct 41.8 LAB MCV(LOINC) 81.0-100.0 fL MCV 87.2 LAB MCH(LOINC) 27.0-33.0 pg MCH 29.2 LAB MCHC(LOINC) 32.0-36.0 G/dL MCHC 33.5 LAB RDW(LOINC) 11.5-15.5 % RDW 13.4 LAB PLT(LOINC) 150-450 10 3/mcL Platelet 177 LAB MPV(LOINC) 6.4-10.5 fL MPV 10.0 Performed By: #### ANEU, CBC, BMP, ADIFF, GFR #### [address] [address] .AUTO DIFF Collected: 01/20/2018 Status: F Source: [facility] 4:40 AM [facility] REPOSITORY TYPE CODE TESTS RESULT OUT OF REFERENCE UNITS RANGE LAB DOLORES(LOINC) 50.0-75.0 % Neutrophil % 70.8 LAB LYM(LOINC) 20.0-40.0 % Low Lymphocyte % 16.3 LAB MON(LOINC) 2.0-13.0 % Monocyte % 12.3 LAB EO(LOINC) 0.0-6.0 % Eosinophil % 0.2 LAB BAS(LOINC) 0.0-2.5 % Basophil % 0.4 LAB ABLYM(LOIN 0.90-4.32 10 3/mcL C) Lymphocyte, 2.00 Absolute LAB PATRICIA(LOINC 0.09-1.40 10 3/mcL ) High Monocyte, 1.50 Absolute LAB AEOS(LOINC 0.00-0.65 10 3/mcL ) Eosinophil, 0.00 Absolute LAB ABAS(LOINC 0.00-0.27 10 3/mcL ) Basophil, 0.00 Absolute Performed By: #### ANEU, CBC, BMP, ADIFF, GFR #### [address] [address] .NEUABS Collected: 01/20/2018 Status: F Source: [facility] 4:40 AM [facility] REPOSITORY TYPE CODE TESTS RESULT OUT OF REFERENCE UNITS RANGE LAB ANEU(LOINC) 2.25-8.10 10 3/mcL High Neutrophil, 8.50 Absolute Performed By: #### ANEU, CBC, BMP, ADIFF, GFR #### [address] [address] BMP Collected: 01/20/2018 Status: F Source: [facility] 4:40 AM [facility] REPOSITORY TYPE CODE TESTS RESULT OUT OF REFERENCE UNITS RANGE LAB GLU(LOINC) 70-110 mg/dL Glucose High Level 115 LAB NA(LOINC) 136-145 mEq/L Sodium Level 139 LAB K(LOINC) 3.5-5.0 mEq/L Potassium Level 4.0 LAB CL(LOINC) 98-110 mEq/L Chloride 105 LAB CO2(LOINC) 22-32 mEq/L CO2 26 LAB EBAL(LOINC 4.0-15.0 mEq/L ) Electrolyte Balance 8.0 LAB BUN(LOINC) 8.0-22.0 mg/dL BUN 10.0 LAB CRE(LOINC) 0.60-1.40 mg/dL Creatinine Lvl (s) 0.69 LAB BC(LOINC) 10.0-22.0 ratio BUN/Creatinine 14.5 Ratio LAB CA(LOINC) 8.4-10.1 mg/dL Low Calcium Lvl 8.2 Performed By: #### ANEU, CBC, BMP, ADIFF, GFR #### [address] [address] .GFR Collected: 01/20/2018 Status: F Source: [facility] 4:40 AM [facility] REPOSITORY TYPE CODE TESTS RESULT OUT OF REFERENCE UNITS RANGE LAB GFRAA(LOINC ml/min/1.73 ) sqm GFR >60 [place] Result Comment: GFR Population mean for , Non- Americans Ages 20-29 = 116 mL/min/1.73 sq.m. Ages 30-39 = 107 mL/min/1.73 sq.m. Ages 40-49 = 99 mL/min/1.73 sq.m. Ages 50-59 = 93 mL/min/1.73 sq.m. Ages 60-69 = 85 mL/min/1.73 sq.m. Ages 70+ = 75 mL/min/1.73 sq.m. Chronic Kidney Disease: Less than 60 mL/min/1.73 square meters End Stage Renal Disease: Less than 15 mL/min/1.73 square meters LAB GFRNO(LOINC) ml/min/1.73sqm GFR Non- >60 Result Comment: GFR Population mean for , Non- Americans Ages 20-29 = 116 mL/min/1.73 sq.m. Ages 30-39 = 107 mL/min/1.73 sq.m. Ages 40-49 = 99 mL/min/1.73 sq.m. Ages 50-59 = 93 mL/min/1.73 sq.m. Ages 60-69 = 85 mL/min/1.73 sq.m. Ages 70+ = 75 mL/min/1.73 sq.m. Chronic Kidney Disease: Less than 60 mL/min/1.73 square meters End Stage Renal Disease: Less than 15 mL/min/1.73 square meters Performed By: #### ANEU, CBC, BMP, ADIFF, GFR #### [address] [address] PRO Collected: 01/19/2018 Status: F Source: [email or web address] 1:18 PM [facility] REPOSITORY TYPE CODE TESTS RESULT OUT OF REFERENCE UNITS RANGE LAB PT(LOINC) 9.0-14.6 seconds Protime 13.1 Result Comment: Effective 09/09/07, Protime results may be affected by some antibiotics (i.e. Ciprofloxacin, Azithromycin, Bactrim) which may potentiate the action of oral anticoagulants, with further increases in Protime/INR. LAB INR(LOINC) ratio PT International Ratio 1.1 Result Comment: The [place] [employer] (CHEST, 1992, 102:312S-25S) recommended therapeutic range for oral anticoagulant therapy is: LOW RISK: Prophylaxis of venous thrombosis INR: 2.0-3.0 Treatment of pulmonary embolism 2.0-3.0 Prevention of systemic embolism 2.0-3.0 HIGH RISK: Mechanical prosthetic valves 2.5-3.5 Performed By: #### PRO #### [address] [address] XR FLUORO 1-2 HRS Observed: 01/19/2018 Status: F Source: [email or web address] TECH TIME 9:45 AM [facility] REPOSITORY ORIGINAL XR FLUORO 1-2 HRS TECH TIME CLINICAL STATEMENT: jesús thomson fx Technical Details: Tech Time - 10:00-11:30a; C-Arm # - 11; Total Dose - 2.45mGy; Images - 5; Plumbing Warehouse Helper - nmk; History - bilat pilon fx; Fluoro Time - 24sec; FINDINGS: Fluoroscopic spot images were provided for interpretation. They demonstrate ORIF of an ankle fracture. Detail is limited. Please see the operative note for details. Interpreted By: Robbie Phillips Preliminary Report By: Robbie Phillips Electronically Signed By: Robbie Phillips Dictated Date: 01/19/2018 3:31:22 PM Prelim Date: 01/19/2018 3:31:22 PM Sign Date: 01/19/2018 3:31:39 PM XR FLUORO 1-2 HRS Observed: 01/19/2018 Status: F Source: [email or web address] TECH TIME 8:45 AM [facility] REPOSITORY ORIGINAL XR FLUORO 1-2 HRS TECH TIME CLINICAL STATEMENT: bilat pilon fx Technical Details: Tech Time - [id number]; C-Arm # - 11; Total Dose - .91mGy; Images - 4; Plumbing Warehouse Helper - nmk; History - bilat pilon fx; Fluoro Time - 11sec; FINDINGS: Fluoroscopic spot images were provided for interpretation. They demonstrate ORIF of an ankle fracture. Detail is limited. Please see the operative note for details. Interpreted By: Robbie Phillips Preliminary Report By: Robbie Phillips Electronically Signed By: Robbie Phillips Dictated Date: 01/19/2018 3:31:45 PM Prelim Date: 01/19/2018 3:31:45 PM Sign Date: 01/19/2018 3:32:10 PM XR CHEST 2 VIEWS Observed: 01/19/2018 Status: F Source: [email or web address] 7:15 AM [facility] REPOSITORY ORIGINAL XR CHEST 2 VIEWS CLINICAL STATEMENT: Chest Pain. COMPARISON: None FINDINGS: Lung volumes are low. The cardia mediastinal silhouette appears normal. Bibasilar consolidations favor atelectasis given low lung volumes. No pleural effusion, vascular congestion, or pneumoth orax is shown. No displaced fractures seen. Degenerative changes are seen in the spine. IMPRESSION: Hypoventilatory changes. Interpreted By: Scarlett Diamond MD Preliminary Report By: Scarlett Diamond MD Electronically Signed By: Scarlett Diamond MD Dictated Date: 01/19/2018 8:18:18 AM Prelim Date: 01/19/2018 8:18:18 AM Sign Date: 01/19/2018 8:20:29 AM CBC Collected: 01/19/2018 Status: F Source: [facility] 5:50 AM [facility] REPOSITORY TYPE CODE TESTS RESULT OUT OF REFERENCE UNITS RANGE LAB WBC(LOINC) 4.50-10.80 10 3/mcL High WBC 11.60 LAB RBCCT(LOINC 4.50-6.00 10 6/mcL ) RBC 4.85 LAB HGB(LOINC) 13.0-17.5 G/dL Hgb 14.0 LAB HCT(LOINC) 40.0-52.0 % Hct 42.0 LAB MCV(LOINC) 81.0-100.0 fL MCV 86.6 LAB MCH(LOINC) 27.0-33.0 pg MCH 28.9 LAB MCHC(LOINC) 32.0-36.0 G/dL MCHC 33.4 LAB RDW(LOINC) 11.5-15.5 % RDW 13.4 LAB PLT(LOINC) 150-450 10 3/mcL Platelet 200 LAB MPV(LOINC) 6.4-10.5 fL MPV 9.6 Performed By: #### ANTIS, ANEU, GFR, ADIFF, CMP, CBC, ABORH #### [place] [address] .AUTO DIFF Collected: 01/19/2018 Status: F Source: [facility] 5:50 AM [facility] REPOSITORY TYPE CODE TESTS RESULT OUT OF REFERENCE UNITS RANGE LAB DOLORES(LOINC) 50.0-75.0 % High Neutrophil % 78.3 LAB LYM(LOINC) 20.0-40.0 % Low Lymphocyte % 12.8 LAB MON(LOINC) 2.0-13.0 % Monocyte % 8.1 LAB EO(LOINC) 0.0-6.0 % Eosinophil % 0.5 LAB BAS(LOINC) 0.0-2.5 % Basophil % 0.3 LAB ABLYM(LOIN 0.90-4.32 10 3/mcL C) Lymphocyte, 1.50 Absolute LAB PATRICIA(LOINC 0.09-1.40 10 3/mcL ) Monocyte, 0.90 Absolute LAB AEOS(LOINC 0.00-0.65 10 3/mcL ) Eosinophil, 0.10 Absolute LAB ABAS(LOINC 0.00-0.27 10 3/mcL ) Basophil, 0.00 Absolute Performed By: #### ANTIS, ANEU, GFR, ADIFF, CMP, CBC, ABORH #### [place] [id number] .NEUABS Collected: 01/19/2018 Status: F Source: [facility] 5:50 AM [facility] REPOSITORY TYPE CODE TESTS RESULT OUT OF REFERENCE UNITS RANGE LAB ANEU(LOINC) 2.25-8.10 10 3/mcL High Neutrophil, 9.10 Absolute Performed By: #### ANTIS, ANEU, GFR, ADIFF, CMP, CBC, ABORH #### [facility] [address] [place] [address] CMP Collected: 01/19/2018 Status: F Source: [facility] 5:50 AM [facility] REPOSIT[facility] TYPE CODE TESTS RESULT OUT OF REFERENCE UNITS RANGE LAB GLU(LOINC) 70-110 mg/dL Glucose High Level 134 LAB NA(LOINC) 136-145 mEq/L Sodium Level 139 LAB K(LOINC) 3.5-5.0 mEq/L Potassium Level 3.9 LAB CL(LOINC) 98-110 mEq/L Chloride 106 LAB CO2(LOINC) 22-32 mEq/L CO2 25 LAB EBAL(LOINC 4.0-15.0 mEq/L ) Electrolyte Balance 8.0 LAB BUN(LOINC) 8.0-22.0 mg/dL BUN 16.0 LAB CRE(LOINC) 0.60-1.40 mg/dL Creatinine Lvl (s) 0.73 LAB BC(LOINC) 10.0-22.0 ratio BUN/Creatinine 21.9 Ratio LAB CA(LOINC) 8.4-10.1 mg/dL Calcium Lvl 8.5 LAB PROT(LOINC 6.0-8.5 G/dL ) Total Protein 6.8 LAB ALB(LOINC) 3.2-4.8 G/dL Albumin Level 3.7 LAB GLB(LOINC) 1.5-3.8 G/dL Globulin 3.1 LAB AG(LOINC) 0.9-1.6 ratio A/G Ratio 1.2 LAB BILT(LOINC 0.2-1.2 mg/dL ) Bili Total 0.3 LAB AP(LOINC) 38-126 U/L Alk Phos 38 LAB AST(LOINC) 8-34 U/L AST/SGOT 20 LAB ALT(LOINC) 12-55 U/L ALT/SGPT 32 Performed By: #### ANTIS, ANEU, GFR, ADIFF, CMP, CBC, ABORH #### [address] [address] .GFR Collected: 01/19/2018 Status: F Source: [facility] 5:50 AM [facility] REPOSIT[facility] TYPE CODE TESTS RESULT OUT OF REFERENCE UNITS RANGE LAB GFRAA(LOINC ml/min/1.73 ) sqm GFR >60 Yemeni Result Comment: GFR Population mean for , Non- Americans Ages 20-29 = 116 mL/min/1.73 sq.m. Ages 30-39 = 107 mL/min/1.73 sq.m. Ages 40-49 = 99 mL/min/1.73 sq.m. Ages 50-59 = 93 mL/min/1.73 sq.m. Ages 60-69 = 85 mL/min/1.73 sq.m. Ages 70+ = 75 mL/min/1.73 sq.m. Chronic Kidney Disease: Less than 60 mL/min/1.73 square meters End Stage Renal Disease: Less than 15 mL/min/1.73 square meters LAB GFRNO(LOINC) ml/min/1.73sqm GFR Non- >60 Result Comment: GFR Population mean for , Non- Americans Ages 20-29 = 116 mL/min/1.73 sq.m. Ages 30-39 = 107 mL/min/1.73 sq.m. Ages 40-49 = 99 mL/min/1.73 sq.m. Ages 50-59 = 93 mL/min/1.73 sq.m. Ages 60-69 = 85 mL/min/1.73 sq.m. Ages 70+ = 75 mL/min/1.73 sq.m. Chronic Kidney Disease: Less than 60 mL/min/1.73 square meters End Stage Renal Disease: Less than 15 mL/min/1.73 square meters Performed By: #### ANTIS, ANEU, GFR, ADIFF, CMP, CBC, ABORH #### [address] [address] TABO Collected: 01/19/2018 Status: F Source: [facility] 5:50 AM [facility] REPOSIT[facility] TYPE CODE TESTS RESULT OUT OF RANGE REFERENCE UNITS LAB ABORH(LOINC ) Unknown ABO/Rh A POS Interp Performed By: #### ANTIS, ANEU, GFR, ADIFF, CMP, CBC, ABORH #### [facility] [address] [place] [address] TABS Collected: 01/19/2018 Status: F Source: [facility] 5:50 AM [facility] REPOSITORY TYPE CODE TESTS RESULT OUT OF REFERENCE UNITS RANGE LAB ANST(LOINC ) Antibody Negative ABSC Screen Tango Performed By: #### ANTIS, ANEU, GFR, ADIFF, CMP, CBC, ABORH #### [facility] [address] [place] [address] ANKLE W/O CONTRAST Observed: 01/19/2018 Status: F Source: [facility] RIGHT 1:36 AM [facility] REPOSITORY ORIGINAL Clinical history: Evaluate ankle fracture. COMPARISON: RIGHT ankle x-ray on 01/18/2018. Axial scans were obtained through the RIGHT ankle. Intravenous contrast was not given. This exam was performed according to our departmental dose optimization program, and includes the following measure s where applicable: automated exposure control, adjustment of the mAs and/or kVp according to patient size and/or exam, and an iterative reconstruction algorithm. There is a comminuted intra-articular fracture of distal RIGHT tibia with multiple fracture lines that radiates upward from the articular surface into the distal shaft. The longest fracture line has a l ength of approximately 4 cm. There is maximum of 3 mm of separation of fragments with no significant offset detected at the articular surface of distal tibia. The tibiofibular alignment is normal. Distal fibula is intact. Talus shows no sign of fracture. Tibiotalar alignment is normal. There is no calcaneal fracture. IMPRESSION: Comminuted intra-articular distal LEFT tibial fracture with only mild diastasis of fragments No fracture of talus or calcaneus. Interpreted By: Gilberto Metzger MD Preliminary Report By: Gilberto Metzger MD Electronically Signed By: Gilberto Metzger MD Dictated Date: 01/19/2018 2:13:37 AM Prelim Date: 01/19/2018 2:13:37 AM Sign Date: 01/19/2018 2:17:[address] ANKLE W/O CONTRAST Observed: 01/19/2018 Status: F Source: [facility] LEFT 1:36 AM [facility] REPOSIT[facility] ORIGINAL Clinical history: Evaluate LEFT ankle fracture. COMPARISON: LEFT ankle x-ray on 01/18/2018 Axial scans were obtained through the LEFT ankle. Intravenous contrast was not given. This exam was performed according to our departmental dose optimization program, and includes the following measures where applicable: automated exposure control, adjustment of the mAs and/or kVp according to patient size and/or exam, and an iterative reconstruction algorithm. There is a comminuted intra-articular fracture at the distal end of the LEFT tibia. There is up to 8 mm of displacement of fragments at the articular surface with mild depression of fragments at the art icular surfaces also. Medial malleolus has a fracture obliquely across its base. The largest fracture fragment is from the lateral side of distal LEFT tibia. Compared with fractures of distal RIGHT tibia there is greater displacement of the LEFT tibia than RIGHT tibia. Distal fibula is intact. Tibiofibular alignment is maintained. The talus and calcaneus show no sign of fracture. Moderate generalized soft tissue swelling is present around the LEFT ankle. IMPRESSION: Comminuted intra-articular fracture of distal LEFT tibia with up to 8 mm of separation of fragments at the distal articular surface of the LEFT tibia. Interpreted By: Gilberto Metzger MD Preliminary Report By: Gilberto Metzger MD Electronically Signed By: Gilberto Metzger MD Dictated Date: 01/19/2018 2:31:44 AM Prelim Date: 01/19/2018 2:31:44 AM Sign Date: 01/19/2018 2:36:57 AM CBC Collected: 01/19/2018 Status: F Source: [facility] 1:21 AM [facility] REPOSITORY TYPE CODE TESTS RESULT OUT OF REFERENCE UNITS RANGE LAB WBC(LOINC) 4.50-10.80 10 3/mcL High WBC 13.40 LAB RBCCT(LOINC 4.50-6.00 10 6/mcL ) RBC 5.03 LAB HGB(LOINC) 13.0-17.5 G/dL Hgb 14.8 LAB HCT(LOINC) 40.0-52.0 % Hct 43.4 LAB MCV(LOINC) 81.0-100.0 fL MCV 86.4 LAB MCH(LOINC) 27.0-33.0 pg MCH 29.5 LAB MCHC(LOINC) 32.0-36.0 G/dL MCHC 34.1 LAB RDW(LOINC) 11.5-15.5 % RDW 13.4 LAB PLT(LOINC) 150-450 10 3/mcL Platelet 214 LAB MPV(LOINC) 6.4-10.5 fL MPV 9.8 Performed By: #### ADIFF, ANEU, GFR, BMP, CBC, PRO, APTT #### [address] [address] .AUTO DIFF Collected: 01/19/2018 Status: F Source: [facility] 1:21 AM [facility] REPOSITORY TYPE CODE TESTS RESULT OUT OF REFERENCE UNITS RANGE LAB DOLORES(LOINC) 50.0-75.0 % High Neutrophil % 79.9 LAB LYM(LOINC) 20.0-40.0 % Low Lymphocyte % 12.7 LAB MON(LOINC) 2.0-13.0 % Monocyte % 6.4 LAB EO(LOINC) 0.0-6.0 % Eosinophil % 0.5 LAB BAS(LOINC) 0.0-2.5 % Basophil % 0.5 LAB ABLYM(LOIN 0.90-4.32 10 3/mcL C) Lymphocyte, 1.70 Absolute LAB PATRICIA(LOINC 0.09-1.40 10 3/mcL ) Monocyte, 0.90 Absolute LAB AEOS(LOINC 0.00-0.65 10 3/mcL ) Eosinophil, 0.10 Absolute LAB ABAS(LOINC 0.00-0.27 10 3/mcL ) Basophil, 0.10 Absolute Performed By: #### ADIFF, ANEU, GFR, BMP, CBC, PRO, APTT #### [address] [address] .NEUABS Collected: 01/19/2018 Status: F Source: [facility] 1:21 AM [facility] REPOSITORY TYPE CODE TESTS RESULT OUT OF REFERENCE UNITS RANGE LAB ANEU(LOINC) 2.25-8.10 10 3/mcL High Neutrophil, 10.70 Absolute Performed By: #### ADIFF, ANEU, GFR, BMP, CBC, PRO, APTT #### [address] [address] BMP Collected: 01/19/2018 Status: F Source: [facility] 1:21 AM [facility] REPOSITORY TYPE CODE TESTS RESULT OUT OF REFERENCE UNITS RANGE LAB GLU(LOINC) 70-110 mg/dL Glucose Level 110 LAB NA(LOINC) 136-145 mEq/L Sodium Level 141 LAB K(LOINC) 3.5-5.0 mEq/L Potassium Level 3.8 LAB CL(LOINC) 98-110 mEq/L Chloride 109 LAB CO2(LOINC) 22-32 mEq/L Low CO2 19 LAB EBAL(LOINC 4.0-15.0 mEq/L ) Electrolyte Balance 13.0 LAB BUN(LOINC) 8.0-22.0 mg/dL BUN 15.0 LAB CRE(LOINC) 0.60-1.40 mg/dL Creatinine Lvl (s) 0.73 LAB BC(LOINC) 10.0-22.0 ratio BUN/Creatinine 20.5 Ratio LAB CA(LOINC) 8.4-10.1 mg/dL Low Calcium Lvl 8.2 Performed By: #### ADIFF, ANEU, GFR, BMP, CBC, PRO, APTT #### [place] [address] .GFR Collected: 01/19/2018 Status: F Source: [facility] 1:21 AM [facility] REPOSITORY TYPE CODE TESTS RESULT OUT OF REFERENCE UNITS RANGE LAB GFRAA(LOINC ml/min/1.73 ) sqm GFR >60 Yemeni Result Comment: GFR Population mean for , Non- Americans Ages 20-29 = 116 mL/min/1.73 sq.m. Ages 30-39 = 107 mL/min/1.73 sq.m. Ages 40-49 = 99 mL/min/1.73 sq.m. Ages 50-59 = 93 mL/min/1.73 sq.m. Ages 60-69 = 85 mL/min/1.73 sq.m. Ages 70+ = 75 mL/min/1.73 sq.m. Chronic Kidney Disease: Less than 60 mL/min/1.73 square meters End Stage Renal Disease: Less than 15 mL/min/1.73 square meters LAB GFRNO(LOINC) ml/min/1.73sqm GFR Non- >60 Result Comment: GFR Population mean for , Non- Americans Ages 20-29 = 116 mL/min/1.73 sq.m. Ages 30-39 = 107 mL/min/1.73 sq.m. Ages 40-49 = 99 mL/min/1.73 sq.m. Ages 50-59 = 93 mL/min/1.73 sq.m. Ages 60-69 = 85 mL/min/1.73 sq.m. Ages 70+ = 75 mL/min/1.73 sq.m. Chronic Kidney Disease: Less than 60 mL/min/1.73 square meters End Stage Renal Disease: Less than 15 mL/min/1.73 square meters Performed By: #### ADIFF, ANEU, GFR, BMP, CBC, PRO, APTT #### [address] [address] APTT Collected: 01/19/2018 Status: F Source: [facility] 1:21 AM [facility] REPOSITORY TYPE CODE TESTS RESULT OUT OF REFERENCE UNITS RANGE LAB PDOSE(LOIN C) Heparin dose None (APTT) LAB APTT0(LOIN 25.0-35.0 seconds C) APTT 26.1 Result Comment: Specimen Lipemic For Heparin anticoagulation therapy, the recommended therapeutic range is: 54-77 seconds (APTT Correlation with Anti-Xa therapeutic range of 0.3-0.7 units/ml). PLEASE REFERENCE THE PHARMACY PROTOCOL FOR DOSING. Performed By: #### ADIFF, ANEU, GFR, BMP, CBC, PRO, APTT #### [address] [address] PRO Collected: 01/19/2018 Status: F Source: [facility] 1:21 AM [facility] REPOSITORY TYPE CODE TESTS RESULT OUT OF REFERENCE UNITS RANGE LAB PT(LOINC) 9.0-14.6 seconds Protime 12.3 Result Comment: Effective 09/09/07, Protime results may be affected by some antibiotics (i.e. Ciprofloxacin, Azithromycin, Bactrim) which may potentiate the action of oral anticoagulants, with further increases in Protime/INR. LAB INR(LOINC) ratio PT International Ratio 1.1 Result Comment: The [place] [employer] (CHEST, 1992, 102:312S-25S) recommended therapeutic range for oral anticoagulant therapy is: LOW RISK: Prophylaxis of venous thrombosis INR: 2.0-3.0 Treatment of pulmonary embolism 2.0-3.0 Prevention of systemic embolism 2.0-3.0 HIGH RISK: Mechanical prosthetic valves 2.5-3.5 Performed By: #### ADIFF, ANEU, GFR, BMP, CBC, PRO, APTT #### [place] [id number] [place] [address] CT SPINE LUMBAR W/O Observed: 01/18/2018 Status: F Source: [facility] CONTRAST 11:21 PM [facility] REPOSITORY ORIGINAL Clinical history: Low back pain. Fall from ladder. . COMPARISON: None Axial scans were obtained through the lumbar spine. Intravenous contrast was not given. This exam was performed according to our departmental dose optimization program, and includes the following measur es where applicable: automated exposure control, adjustment of the mAs and/or kVp according to patient size and/or exam, and an iterative reconstruction algorithm. The lumbar spine alignment is normal. Vertebral bodies show no evidence of compression fracture. There is mild degenerative disc disease at each level throughout the lumbar spine with disc space narrowi ng and mild endplate osteophytic spur formation. Facet joints have normal alignment. There is no fracture of posterior elements. There is no retroperitoneal hematoma or paraspinal hematoma. Spinal canal is normal in diameter. Sacroiliac joints have normal alignment. There is no sacral fracture in the 1st 3 segments. IMPRESSION: No fracture or subluxation of the lumbar spine. Mild multilevel degenerative disc disease. Interpreted By: Gilberto Metzger MD Preliminary Report By: Gilberto Metzger MD Electronically Signed By: Gilberto Metzger MD Dictated Date: 01/18/2018 11:52:40 PM Prelim Date: 01/18/2018 11:52:40 PM Sign Date: 01/18/2018 11:56:33 PM XR HIP LEFT W/PELVIS Observed: 01/18/2018 Status: F Source: [email or web address] 4 VIEWS 10:13 PM [facility] REPOSITORY ORIGINAL XR HIP LEFT W/PELVIS 4 VIEWS CLINICAL STATEMENT: pain Comparison: None FINDINGS: The hips demonstrate mild degenerative change. There is no fracture or dislocation. No suspicious osseous lesion is seen. IMPRESSION: No acute fracture or subluxation. I have personally reviewed the images of this examination and agree with the resident's findings and interpretation. Interpreted By: Jagdeep Crenshaw DO Preliminary Report By: Brian Weathers MD Electronically Signed By: Jagdeep Crenshaw DO Dictated Date: 01/18/2018 10:16:22 PM Prelim Date: 01/18/2018 10:18:46 PM Sign Date: 01/18/2018 10:22:12 PM XR FOOT MINIMUM 3 Observed: 01/18/2018 Status: F Source: [email or web address] [facility] RIGHT 9:56 PM [facility] REPOSITORY ORIGINAL XR FOOT MINIMUM 3 VIEWS RIGHT CLINICAL STATEMENT: pain. Patient reportedly fell from a ladder. COMPARISON: None FINDINGS: Subtle fracture involves the lateral aspect of the cuboid bone, best seen on oblique and lateral projections. There is a intra- articular fracture of the distal RIGHT tibia. The talus, calcaneu s and remaining tarsal bones appear intact. No metatarsal or phalangeal fracture is seen. IMPRESSION: 1. No distal tibial fracture and fracture of the lateral cuboid bone. Interpreted By: Jagdeep Crenshaw DO Preliminary Report By: Jagdeep Crenshaw DO Electronically Signed By: Jagdeep Crenshaw DO Dictated Date: 01/18/2018 10:04:33 PM Prelim Date: 01/18/2018 10:04:33 PM Sign Date: 01/18/2018 10:06:43 PM XR FOOT MINIMUM 3 Observed: 01/18/2018 Status: F Source: [email or web address] [facility] LEFT 9:56 PM [facility] REPOSITORY ORIGINAL XR FOOT MINIMUM 3 VIEWS LEFT CLINICAL STATEMENT: pain. Patient reportedly fell from a ladder. COMPARISON: None FINDINGS: There is a known complex triplane fracture of the distal tibia. Skeletal elements of the LEFT foot remain intact. There is no posttraumatic fracture or subluxation within the foot. IMPRESSION: 1. No acute fracture within the LEFT foot. 2. Complex fracture distal LEFT tibia has been previously identified. Interpreted By: Jagdeep Crenshaw DO Preliminary Report By: Jagdeep Crenshaw DO Electronically Signed By: Jagdeep Crenshaw DO Dictated Date: 01/18/2018 10:08:28 PM Prelim Date: 01/18/2018 10:08:28 PM Sign Date: 01/18/2018 10:09:31 PM XR ANKLE MINIMUM 3 Observed: 01/18/2018 Status: F Source: [facility] RIGHT 9:56 PM [facility] REPOSITORY ORIGINAL XR ANKLE MINIMUM 3 VIEWS RIGHT CLINICAL STATEMENT: pain. Fell from a ladder. COMPARISON: 05/13/2013. FINDINGS: A sagittally oriented intra-articular fracture involves the distal tibia. Fracture line extends into the ankle mortise and is associated with moderate soft tissue swelling. The distal fibula, talus, calcaneus, and visualized hindfoot appear intact. IMPRESSION: 1. Intra-articular complex fracture distal RIGHT tibia. Interpreted By: Jagdeep Crenshaw DO Preliminary Report By: Jagdeep Crenshaw DO Electronically Signed By: Jagdeep Crenshaw DO Dictated Date: 01/18/2018 10:01:46 PM Prelim Date: 01/18/2018 10:01:46 PM Sign Date: 01/18/2018 10:03:34 PM XR ANKLE MINIMUM 3 Observed: 01/18/2018 Status: F Source: [facility] VIEWS LEFT 9:56 PM [facility] REPOSITORY ORIGINAL XR ANKLE MINIMUM 3 VIEWS LEFT CLINICAL STATEMENT: pain. COMPARISON: None FINDINGS: Acute oblique fractures of the medial malleolus, the distal tibial diaphysis and a vertically oriented fracture involving the tibial plafond and is appreciated. The distal fibula, talus, and c alcaneus remain intact. There is moderate to marked diffuse soft tissue swelling. IMPRESSION: 1. Complex triplane fracture distal LEFT tibia. Interpreted By: Jagdeep Crenshaw DO Preliminary Report By: Jagdeep Crenshaw DO Electronically Signed By: Jagdeep Crenshaw DO Dictated Date: 01/18/2018 9:59:52 PM Prelim Date: 01/18/2018 9:59:52 PM Sign Date: 01/18/2018 10:01:30 PM ALLERGIES ALLERGIES DATE TYPE / CODE NAME / CODE REACTION SEVERITY SOURCE 01/23/2018 Drug No Known Unknown [facility] Allergy/4160 Allergies/F00 Hospital 42680(SNOMED [id number](RXNOR Repository CT) M) ENCOUNTERS ENCOUNTERS ADMIT/DISCHARGE ACCOUNT NUMBER ADMITTING ENCOUNTER LOCATION SOURCE CLASS 02/10/2018 [id number] Ambulatory Building:[facility] Practices Repository 01/23/2018/02/01/20 [id number] Skip, Inpatient Shanelle Shanelle Macias Encounter [facility] ding:RURoom: Repository [id number]: 1 01/23/2018 [id number] Skip Ambulatory BMSBuilding: Shanelle Macias BMS.[facility] Repository 01/19/2018/01/24/20 [id number] DARCY MARSH, Inpatient ABuilding:[facility] RODRIGUEZ Encounter 5Room: Health 5508Bed: A [facility] Repository 01/18/2018/01/20/20 [id number] Emergency BBuilding:CY [place] [address] O [facility] Repository FUNCTIONAL STATUS FUNCTIONAL STATUS No Functional Status Records FoundEQUIPMENT EQUIPMENT No Equipment Records FoundPAYERS PAYERS ENCOUNTER GUARANTOR PAYER SUBSCRIBER SOURCE 02/10/2018 Jono L Primary Jono L OHIP Practices KeenerDOB: [facility] KeenerDOB: Repository Number: [id number] [facility] 00Effective 7 [place], [place] Date:9565-21-02[place], [place] [address]Mxe: ([phone]) Name:[facility] [address]Iut: [id number] [phone] (HP) (HP)Tel: [phone]: ([phone] 02/10/2018 Secondary Jono L OHIP Practices Insurance:Medical KeenerDOB: Repository [facility] [id number] Number: 7 [facility] [id number] [place], [place] Date:2005-06-25 [address]Gam: [id number] ~(3 Name:[facility] [address] (HP) [address]Undkyxrzq, [place] [id number]: 02/10/2018 Tertiary Jono L OHIP Practices Insurance:Medical KeenerDOB: Repository [facility] [id number] Number: 7 [facility] [id number] RdO[place], [place] Date:2010-02-25 336[address]Vzb: [id number] ~(3 Name:[facility] [address] (HP) [address]Lkymnwtcs, [place] [id number]: 02/10/2018 Tertiary Jono L OHIP Practices Insurance:Medical KeenerDOB: Repository [facility] [id number] Number: 7 [facility] [id number] RdO[place], [place] Date:2015-02-25 [address]Cpb: [id number] ~(3 Name:[address] (HP) [address]Bhvdsrwsa, [place] [id number]: 01/23/2018 JONO Monae Primary Insurance:UMR JONO Timmons [id number] [facility] [address]Of[facility]reaWin[facility] CenterD[facility], Number: [id number] [facility] [address]Tad: [id number] Repository Date:8060-13-21[address] () [address] [place], [place] [phone]: 01/23/2018 Secondary NOT GIVENUNK Wayan Insurance:SELF PAY [facility] Number: Effective Repository Date:2018-01-23 01/23/2018 JONO Monae Primary Insurance:UMR JONO Timmons [id number] [facility] [address]Ypoxya KEENERDOB: [facility], Number: [id number] [address]Txo: [id number] Repository Date:3905-26-50[address] () [address] [place] [address]WP: 01/23/2018 Secondary NOT GIVENUNK Shanelle Insurance:SELF PAY [facility] Number: Effective Repository Date:2018-01-23 01/19/2018 JONO Monae Primary Insurance:R JONO Monae [facility] SURESHB: [employer] Number: JAIMEE: [facility] [id number] Repository [facility] Date:2018-01-19 [place], [place] [id number] [place], [place] [address]Gel: (762) Name:[facility] [address] [address]Zfh: (HP) [address] [place] [address], [phone] [place] [phone]: (PD)Tel: () 01/18/2018 JONO Monae Primary Insurance:R JONO Monae [facility] KEENERDOB: INSCOPolicy Number: LISADOB: Constantin [id number] Repository [facility] Date:2018-01-18 [place], [place] 2040-90-86[place]emAnnawan, [place] [address]Obw: (132) Name:CPO Banda [address]Pdi: () [address]KbuzHca [facility] [place] [phone] [place] [id number]: ()Tel: (WP) SOCIAL HISTORY SOCIAL HISTORY No Social History Records FoundFAMILY HISTORY FAMILY HISTORY No Family History Records FoundPREGNANCY No Status Records FoundADVANCE DIRECTIVES ADVANCE DIRECTIVES No Advanced Directives Records FoundINFORMATION SOURCE INFORMATION SOURCE DATE CREATED AUTHOR AUTHOR'S ORGANIZATION 02/12/2018 [place]
== END 2018-01-31 12:30 | disposition home or self-care (01) | DRG 561 ==
PROVIDERS: Admitting Provider Psychiatry & Neurology Neurology; Family Provider Nurse Practitioner; PCP Nurse Practitioner; Visit Provider Psychiatry & Neurology Neurology
DX: S82.892D Other fracture of left lower leg, subsequent encounter for closed fracture with routine healing (principal); S82.891D Other fracture of right lower leg, subsequent encounter for closed fracture with routine healing; W11.XXXD Fall on and from ladder, subsequent encounter; K21.9 Gastro-esophageal reflux disease without esophagitis
CPT/HCPCS: 36415; 80048; 85027; 97110; 97163; 97166; 97530; 97535; 97542; 97802

== ENCOUNTER 2023-12-02 07:01 | Day surgery (SDC) | payer OTHER, SELFPAY ==
[2023-12-02] VITALS (7 sets, daily range): BP systolic 87–142; BP diastolic 64–91; PULSE 60–72; RESP 14–16; TEMP 36.1–36.6; O2SAT 96–100; BMI 24.2
--- NOTE | 2023-12-02 07:14 | H&P.OPEN ---
HPI - General General Date of Service: 12/02/23 [facility] Narrative OSMAN GONZALEZ, is a 53 M who presents for an EGD and colonoscopy due to GERD and screening for colon cancer. Patient denies any changes since office visit. Still on the omeprazole which is still effective. office visit 10/24/23 [facility] HPI: 53-year-old male presents for EGD and colonoscopy due to GERD and screening. Patient's been on omeprazole 20 mg for about 15 years or so when he tries to come off has recurrent symptoms. Patient states on medication he has no symptoms. Patient is never had a colonoscopy. Patient denies any family history of colon cancer. Patient denies any chronic abdominal pain/nausea/vomiting. Patient has bowel movements daily does take Metamucil daily as well denies any blood. [facility] Medical History (Updated 11/28/23 @ 14:11 by Loyda Pinzon) History of hiatal hernia Gastric reflux Non-smoker Screening for colon cancer GERD (gastroesophageal reflux disease) Bilateral ankle fractures Fall from ladder Home Medications ?Medication ?Instructions ?Recorded ?Last Taken ?Type multivitamin with folic acid 400 1 tab PO DAILYCM 01/31/18 Unknown Rx mcg tablet (Thera) B-complex with vitamin C 1 tab PO DAILY 10/24/23 Unknown History omeprazole 20 mg capsule,delayed 20 mg PO DAILY 10/24/23 Unknown History release Allergy/AdvReac Type Severity Reaction Status Date / Time No Known Allergies Allergy Verified 11/28/23 14:06 Surgical History (Updated 11/28/23 @ 14:11 by Loyda Pinzon) History of tonsillectomy and adenoidectomy History of ankle surgery Social History (Updated 10/24/23 @ 08:27 by Lisa Melvin) Smoking Status: Never smoker alcohol intake: current Past Medical/Surgical History Planned Operation Planned Operative Procedure(s): COLONOSCOPY/EGD Previous Hospitalizations/Surgeries HX Hospitalizations: No HX of Surgeries: ankle Any Problems With Anesthesia: No You/Your Family Experience Fever (Hyperthermia) With Anes: No Cholinesterase deficiency: No Cardiovascular Hx Chest Pain within Last 2 months: No Hx of Irregular Heartbeat and/or Afib: No Hx Heart Attack: No Hx Hypertension: No Hx Cardiac Surgery/Stents/Etc.: No Hx Pain in Legs when Walking/Leg Cramps: No Respiratory Hx Chronic Obstructive Pulmonary Disease (COPD): No Hx Emphysema: No Hx Sleep Apnea: No Hx Respiratory Tract Infection/Cold (presently): No Do You Snore Loudly (louder than talking or can be heard): No Do You Often Feel Tired/ Fatigued/ Sleepy Dring Daytime?: No Has Anyone Observed You Stop Breathing During Sleep?: No Result (for STOP score): Negative Hx Smoking: No Smoking Status: Never smoker Gastrointestinal Hx Gastrointestinal Bleed: No Hx Ulcer: No Difficulty Chewing/Swallowing: No Hx Unplanned Weight Loss of 20#: No Neurological Hx Seizures: No Hx Multiple Sclerosis: No Hx Parkinson's Disease: No Does patient have nerve stimulator: No Blood Disorder Hx Hepatitis: No Hx Cirrhosis: No Hx Anemia: No Hx Blood Disorders: No Genitourinary Hx Renal Disease: No Hx Dialysis: No Musculoskeletal Hx Arthritis: No Hx Rheumatoid Arthritis: No Endocrine Hx Diabetes: No Thyroid Disease: No Psycho/Social Hx Substance Use: No Hx Alcohol Use: No Hx Anxiety: No Hx Depression: No Hx Dementia: No Miscellaneous Hx Cancer: No Allergies No Known Allergies Allergy (Verified 11/28/23 14:06) Discharge Is Pt Admitted From a Assisted, or a Shelter: No After D/C, Where Do you Plan to Go: Return Home Physical Exam Const alert, oriented x3 and no apparent distress HEENT normocephalic and head/scalp atraumatic Resp normal respiratory effort Cardio regular rate GI soft to palpation and non-tender; Negative for non-distended Palpation: Negative for guarding Extremity no clubbing, cyanosis or edema Skin no rashes or lesions noted Neuro CN's II-XII intact bilaterally Psych mental status grossly normal Assessment & Plan Assessment/Plan (1) GERD (gastroesophageal reflux disease): (2) Screening for colon cancer: Surgery Risks - Colonoscopy I discussed with the patient the risks of the procedure: Yes Risks Include but are not Limited To: Plan for an EGD and colonoscopy Risks include but are not limited to: Bleeding, perforation requiring further surgery, inability to complete colonoscopy requiring barium enema.
--- NOTE | 2023-12-02 07:29 | PRE.ANES_ITS ---
ASA Classification* ASA Classification ASA Classification: 2 Assessment & Plan Anesthesia* Anesthesia Assessment Anesthesia Assessment: Discussed sedation and/or anesthesia options, risks, benefits, and alternatives with patient/parents/legal guardian/POA. Questions invited. The patient/parents/legal guardian/POA seems to understand and agrees to proceed with anesthesia plan. Reviewed the physical assessment, medical history, allergy history and patient home medications list prior to surgery/procedure/anesthetic and documented any changes. Performed airway and anesthesia risk assessments. Anesthesia Type Anesthesia Type: MAC Anesthesia Focused Assessment* Temperature: 97 F Pulse Rate: 72 Blood Pressure: 142/91 Respiratory Rate: 16 Pulse Ox: 100 Airway Assessment Mouth opens: >3 cm Mallampati Score: II Focused Labs Anesthesia Preop lab: CBC WBC 8.3 K/mm3 (4.4-11.0) 01/24/18 05:20 RBC 4.62 M/mm3 (4.6-6.2) 01/24/18 05:20 Hgb 13.4 g/dl (13.0-16.5) 01/24/18 05:20 Hct 40.3 % (40-54) 01/24/18 05:20 Plt Count 221 K/mm3 (150-450) 01/24/18 05:20 CHEMISTRY Potassium 4.3 mmol/L (3.5-5.1) 01/24/18 05:20 Sodium 139 mmol/L (136-145) 01/24/18 05:20 BUN 11 mg/dL (7-18) 01/24/18 05:20 Creatinine 0.79 mg/dL (0.70-1.30) 01/24/18 05:20 Glucose 110 mg/dL (74-106) H 01/24/18 05:20 COAG Pre-Assessment Diagnosis/Proposed Procedure Planned Operative Procedure(s): COLONOSCOPY/EGD Anesthesia History 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 When Was Last Pacemaker Check QUESTION #4 FULL TEXT: You/Your Family Experience fever (hyperthermia) with Anesthesia Last Oral Intake Last Oral intake: Last Oral Intake NPO since 00:00 12/02/23 07:25 Meds taken in AM with sips of water? Meds patient instructed to take am of surgery PONV PONV - general farmworker: PONV - general farmworker Female No 11/28/23 14:11 HX of Motion Sickness No 11/28/23 14:11 HX of N/V After Surgery No 11/28/23 14:11 Non-Smoker Yes 11/28/23 14:11 Duration of Surgery greater No 11/28/23 14:11 than 60 minutes Number of Risk Factors 1 11/28/23 14:11 PONV Score Low Risk 11/28/23 14:11 Height & Weight Height & Weight: Anesthesia: Height & Weight Height 5 ft 9 in 12/02/23 07:25 Weight: 74.389 kg 12/02/23 07:25 Body Mass Index (BMI) 24.2 12/02/23 07:25 Respiratory Assessment Respiratory Assessment - general farmworker: Respiratory Tract Infection Hx - general farmworker Hx Respiratory Tract Infection No 12/02/23 07:16 STOP Sleep Apnea STOP Sleep Apnea - general farmworker: STOP Sleep Apnea - general farmworker Hx Hypertension No 12/02/23 07:16 Hx Sleep Apnea No 12/02/23 07:16 CPAP BIPAP Do you snore loudly (louder No 12/02/23 07:16 than talking or can be heard Do you often feel tired/ No 12/02/23 07:16 fatigued/ sleepy during daytime? Has anyone observed you stop No 12/02/23 07:16 breathing during sleep? STOP Results Negative 12/02/23 07:23 QUESTION #5 FULL TEXT : Do you snore loudly (louder than talking or can be heard through closed doors)? 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 Specify any problems Hx of Preganancy in last 3 N/A 11/28/23 14:11 Months Nurse Filling Out Transfusion VCHRISTIN 11/28/23 14:11 & Questions: Date: 11/28/23 11/28/23 14:11 Time: 14:12 11/28/23 14:11 Patient unable to answer at this time (ie. confused, unrespo /Reproduction History /Reproductive History - general farmworker: /Reproductive Hx- general farmworker Hx Now Gestational Age (in weeks): EDC: Hx Hx Para Hx Section SAB PFSH Medical History History of hiatal hernia Gastric reflux Non-smoker Screening for colon cancer GERD (gastroesophageal reflux disease) Bilateral ankle fractures Fall from ladder Home Medications ?Medication ?Instructions ?Recorded ?Last Taken ?Type multivitamin with folic acid 400 1 tab PO DAILYCM 01/31/18 Unknown Rx mcg tablet (Thera) B-complex with vitamin C 1 tab PO DAILY 10/24/23 Unknown History omeprazole 20 mg capsule,delayed 20 mg PO DAILY 10/24/23 Unknown History release Allergy/AdvReac Type Severity Reaction Status Date / Time No Known Allergies Allergy Verified 11/28/23 14:06 Surgical History History of tonsillectomy and adenoidectomy History of ankle surgery Social History Smoking Status: Never smoker alcohol intake: current Review of Systems (Anesthesia) ROS Narrative System reviewed and no additional complaints, except as documented.
--- NOTE | 2023-12-02 08:00 | COLBX_PTH ---
PATIENT: OSMAN GONZALEZ LOC: EN U#:[id number] AGE/SX: 53/M ROOM: RE12/02/[address]: Dr. Aleisha Fairchild MD : 1970 BED: DIS: 12/02/2023 SPEC #: [id number] RECD: 12/02/23 11:07 STATUS: BLAKE EVARISTO #: [id number] JENNIFER: 12/02/23 08:[address]: Aleisha Fairchild DEPT: SURGICAL PATHOLOGY RECD BY: Claudia Biggs ENTERED: 12/02/23 11:44 SP TYPE: COLON BX OTHR DR: Dr. Anibal Alvarez DO Tissues: A - Stomach, NOS B - Gastric mucous membrane Procedures: Special Stain Group I Surgery Specimen Level IV Alcian Blue/PAS (control) HEADER OPERATION: Colonoscopy, EGD with biopsy and polypectomy PRE-OP DIAGNOSIS: GERD, screening for colon cancer TISSUE SUBMITTED: A- Antrum biopsy, B- Gastric polyp MICROSCOPIC DIAGNOSIS A. Antrum, biopsy: Mild gastritis. See microscopic description and comment. B. Gastric polyp, polypectomy: Fragments of fundic gland polyp. 12/03/2023 COMMENT A. The results of immunohistochemistry for Helicobacter pylori will be reported separately ([id number]). Alcian blue/PAS stain with matched control is used in the evaluation of the specimen. MICROSCOPIC DESCRIPTION Slides are reviewed. A. The specimen shows fragments of gastric mucosa with chronic inflammatory cell infiltrates in the lamina propria consisting of lymphocytes and plasma cells, consistent with mild chronic gastritis. Focal minimal intestinal metaplasia (goblet cell metaplasia) is also noted. GROSS DESCRIPTION A. Received in fixative is one container labeled with the patient's name and designated Antrum biopsy. The specimen consists of two irregular fragments of light stein soft tissue that measures 0.6 x 0.2 x 0.1 cm. The specimen is totally submitted in one cassette. B. Received in fixative is one container labeled with the patient's name and designated Gastric polyp. The specimen consists of two stein-pink polyps measuring 0.6 x 0.5 x 0.5 and 1.0 x 0.6 x 0.5cm. Both polyps are bisected. The presumed base is inked. The entire specimen is submitted in one cassette. 12/02/2023 TC:5 CPT:97682d9,28279
--- NOTE | 2023-12-02 08:00 | IMM_PTH ---
PATIENT: OSMAN GONZALEZ LOC: [facility] U#:[id number] AGE/SX: 53/M ROOM: RE12/02/[address]: Dr. Aleisha Fairchild MD : 1970 BED: DIS: 12/02/2023 SPEC #: [id number] RECD: 12/02/23 11:53 STATUS: BLAKE REQ #: [id number] JENNIFER: 12/02/23 08:[address]: Aleisha Fairchild DEPT: IMMUNOHISTOCHEMISTRY RECD BY: Steven López ENTERED: 12/02/23 11:53 SP TYPE: IMMUNO OTHR DR: Dr. Anibal Alvarez DO Tissues: A - Gastric mucous membrane Procedures: H Pylori (initial) PHYSICIAN & INSTITUTION [place] [address] SPECIMEN INFORMATION: Tissue Source: A- Antrum biopsy Clinical Info: GERD, screening for colon cancer Specimen Number: [id number] CPT code: 47647 METHODOLOGY: Deparaffinized sections of prefer/formalin-fixed tissue or PAP/DQ stained slides are incubated with monoclonal/polyclonal antibodies/oligonucleotide probes. Localization is made via biotin free immunoperoxidase method. Appropriate controls are performed and reacted as expected. Results on target cell population are indicated in the following table: RESULTS: ANTIBODY / CLONE RESULT Block A H Pylori (polyclonal) negative These tests were developed and their performance characteristics determined by [facility]. They may not have been cleared or approved by the U.[place]. Food and Drug Administration. The FDA has determined that such clearance or approval is not necessary. The above immunohistochemical/dualISH markers are ordered and reviewed by the Pathologist. INTERPRETATION: A. Antrum, biopsy: Negative for Helicobacter pylori organisms. 12/03/2023
--- NOTE | 2023-12-02 08:23 | PCM.POST.ANE ---
Anesthesia: Postop Eval I Current Vital Signs Temperature: 97 F Pulse Rate: 67 Blood Pressure: 87/64 Respiratory Rate: 14 Pulse Ox: 96 Oxygen Delivery Method: Room Air Assessment Airway patent: Yes Spontaneous unlabored respirations: Yes Mental status: Awake and Calm nausea: No Vomiting: No Anesthesia Complication: No Fluid Hydration Crystalloid volume administer (ml): 44 Total IV fluid infused: 44 Progress Note Anesthesia document: Postop Eval 1 completed: Yes
--- NOTE | 2023-12-02 08:26 | OP.CCLET_ITS ---
12/02/2023 Anibal Alvarez Do Re : Upper GI endoscopy procedure for Jono Rodriguezr Antonio This procedure was performed on Saturday, December 02, 2023. My impressions and recommendations are as follows: Impressions : - Z-line regular. - Normal examined duodenum. - Normal esophagus. - Multiple gastric polyps. Resected and retrieved. - Erythematous mucosa in the antrum. Biopsied. Recommendations : - Await pathology results. - Discharge patient to home. - Resume previous diet. - Use Prilosec (omeprazole) 40 mg PO daily. - Use sucralfate tablets 1 gram PO QID for 2 weeks. - Continue present medications. My findings are described in the full procedure note, which is enclosed. If I can be of further assistance, please feel free to contact me at Doctor phone number(s): , Work: . Sincerely, MD Aleisha Johnson MD 12/02/2023 8:26:00 AM This report has been signed electronically.
--- NOTE | 2023-12-02 08:26 | OP.EGD_ITS ---
Patient Name: Jono Hansen Procedure Date: 12/02/2023 7:48 AM Date of : 1970 Age: 53 Procedure: Upper GI endoscopy Indications: Heartburn Providers: Aleisha Fairchild MD Medicines: Monitored Anesthesia Care Patient Profile: This is a 53 year old male. Complications: No immediate complications. Procedure: Pre-Anesthesia Assessment: - Prior to the procedure, a History and Physical was performed, and patient medications and allergies were reviewed. The patient's tolerance of previous anesthesia was also reviewed. The risks and benefits of the procedure and the sedation options and risks were discussed with the patient. All questions were answered, and informed consent was obtained. Prior Anticoagulants: The patient has taken no anticoagulant or antiplatelet agents. ASA Grade Assessment: Per anesthesia. After reviewing the risks and benefits, the patient was deemed in satisfactory condition to undergo the procedure. After obtaining informed consent, the endoscope was passed under direct vision. Throughout the procedure, the patient's blood pressure, pulse, and oxygen saturations were monitored continuously. The colonoscope was introduced through the mouth, and advanced to the second part of duodenum. The upper GI endoscopy was accomplished without difficulty. The patient tolerated the procedure well. Scope In: 7:53:34 AM Scope Out: 8:01:56 AM Total Procedure Duration Time 0 hours 8 minutes 22 seconds Findings: The Z-line was regular. The examined duodenum was normal. The esophagus was normal. Multiple less than 5 mm semi-pedunculated polyps with no bleeding and no stigmata of recent bleeding were found in the gastric body. The polyp was removed with a hot snare. Resection and retrieval were complete. Diffuse moderately erythematous mucosa without bleeding was found in the gastric antrum. Biopsies were taken with a cold forceps for histology. Biopsies were taken with a cold forceps for Helicobacter pylori cultures. The cardia and gastric fundus were normal on retroflexion. Impression: - Z-line regular. - Normal examined duodenum. - Normal esophagus. - Multiple gastric polyps. Resected and retrieved. - Erythematous mucosa in the antrum. Biopsied. Recommendation: - Await pathology results. - Discharge patient to home. - Resume previous diet. - Use Prilosec (omeprazole) 40 mg PO daily. - Use sucralfate tablets 1 gram PO QID for 2 weeks. - Continue present medications. Procedure Code(s): --- Professional --- 77610, Esophagogastroduodenoscopy, flexible, transoral; with removal of tumor(s), polyp(s), or other lesion(s) by snare technique 39719, 59, Esophagogastroduodenoscopy, flexible, transoral; with biopsy, single or multiple Diagnosis Code(s): --- Professional --- K31.7, Polyp of stomach and duodenum K31.89, Other diseases of stomach and duodenum R12, Heartburn CPT copyright 2021 [employer]. All rights reserved. The codes documented in this report are preliminary and upon certified medical coder review may be revised to meet current compliance requirements. MD Aleisha Johnson MD 12/02/2023 8:26:00 AM This report has been signed electronically. Number of Addenda: 0 Note Initiated On: 12/02/2023 7:48 AM
--- NOTE | 2023-12-02 08:29 | OP.COLON_ITS ---
Patient Name: Jono Hansen Procedure Date: 12/02/2023 8:02 AM Date of : 1970 Age: 53 Procedure: Colonoscopy Indications: Screening for colorectal malignant neoplasm Providers: Aleisha Fairchild MD Medicines: Monitored Anesthesia Care Patient Profile: Last Colonoscopy: none. The patient's first colonoscopy is today. This is a 53 year old male. Complications: No immediate complications. Procedure: Pre-Anesthesia Assessment: - Prior to the procedure, a History and Physical was performed, and patient medications and allergies were reviewed. The patient's tolerance of previous anesthesia was also reviewed. The risks and benefits of the procedure and the sedation options and risks were discussed with the patient. All questions were answered, and informed consent was obtained. Prior Anticoagulants: The patient has taken no anticoagulant or antiplatelet agents. ASA Grade Assessment: Per anesthesia. After reviewing the risks and benefits, the patient was deemed in satisfactory condition to undergo the procedure. After I obtained informed consent, the scope was passed under direct vision. Throughout the procedure, the patient's blood pressure, pulse, and oxygen saturations were monitored continuously. The colonoscope was introduced through the anus and advanced to the terminal ileum. The colonoscopy was performed without difficulty. The patient tolerated the procedure well. The quality of the bowel preparation was good. Scope In: 8:02:11 AM Scope Withdrawal Time 0 hours 9 minutes 10 seconds Scope Out: 8:14:16 AM Total Procedure Duration Time 0 hours 12 minutes 5 seconds Findings: A few small-mouthed diverticula were found in the sigmoid colon. The exam was otherwise without abnormality on direct and retroflexion views. The terminal ileum appeared normal. Impression: - Diverticulosis in the sigmoid colon. - The examination was otherwise normal on direct and retroflexion views. - The examined portion of the ileum was normal. - No specimens collected. Recommendation: - Discharge patient to home. - Resume previous diet. - Continue present medications. - Repeat colonoscopy in 10 years for screening purposes. Procedure Code(s): --- Professional --- G0121, PT, Colorectal cancer screening; colonoscopy on individual not meeting criteria for high risk Diagnosis Code(s): --- Professional --- Z12.11, Encounter for screening for malignant neoplasm of colon K57.30, Diverticulosis of large intestine without perforation or abscess without bleeding CPT copyright 2021 [employer] [place] [employer]. All rights reserved. The codes documented in this report are preliminary and upon remote medical coder review may be revised to meet current compliance requirements. MD Aleisha Johnson MD 12/02/2023 8:28:53 AM This report has been signed electronically. Number of Addenda: 0 Note Initiated On: 12/02/2023 8:02 AM
--- NOTE | 2023-12-02 08:29 | OP.CCLET_ITS ---
12/02/2023 Anibal Alvarez Do Re : Colonoscopy procedure for Jono Rodriguezr Antonio This procedure was performed on Saturday, December 02, 2023. My impressions and recommendations are as follows: Impressions : - Diverticulosis in the sigmoid colon. - The examination was otherwise normal on direct and retroflexion views. - The examined portion of the ileum was normal. - No specimens collected. Recommendations : - Discharge patient to home. - Resume previous diet. - Continue present medications. - Repeat colonoscopy in 10 years for screening purposes. My findings are described in the full procedure note, which is enclosed. If I can be of further assistance, please feel free to contact me at Doctor phone number(s): , Work: . Sincerely, MD Aleisha Johnson MD 12/02/2023 8:28:53 AM This report has been signed electronically.
--- NOTE | 2023-12-02 11:49 | PCM.POSTANE2 ---
Anesthesia Postop Eval I Sum Postop Eval Completion status Anesthesia document: Postop Eval 1 completed: Yes Anesthesia Postop Eval I Summary Anesthesia Postop Eval I Summary: Anesthesia Postop Eval I: Assessment Summary Airway patent Yes 12/02/23 08:24 [email or web address] Spontaneous unlabored Yes 12/02/23 08:24 [email or web address] respirations Mental status Awake,Calm 12/02/23 08:24 [email or web address] nausea No 12/02/23 08:24 [email or web address] Vomiting No 12/02/23 08:24 [email or web address] Anesthesia Postop Eval I: Fluid Summary Crystalloid volume administer 44 12/02/23 08:24 [email or web address] (ml) Colloids volume administered ( ml) Blood Product volume administered (ml) Total IV fluid infused 44 12/02/23 08:24 [email or web address] Anesthesia Postop Eval I: Summary Notes Anesthesia Complication No 12/02/23 08:24 [email or web address] Anesthesia Complication Comment: Post-operative progress note Anesthesia: Postop Eval II Evaluation Mental status: Awake Pain Level: 0 nausea: No Vomiting: No
== END 2023-12-02 09:00 | disposition home or self-care (01) ==
LOC: EN 07:04 → AC 07:07
PROVIDERS: PCP Student in an Organized Health Care Education/Training Program; Referring Provider Student in an Organized Health Care Education/Training Program; Visit Provider Surgery
PROC: 0DJD8ZZ Inspection of Lower Intestinal Tract, Via Natural or Artificial Opening Endoscopic (ICD-10-PCS; CPT 45378; principal; 2023-12-02 07:55)
DX: Z12.11 Encounter for screening for malignant neoplasm of colon (principal); K21.9 Gastro-esophageal reflux disease without esophagitis; K57.30 Diverticulosis of large intestine without perforation or abscess without bleeding; K31.7 Polyp of stomach and duodenum; K29.70 Gastritis, unspecified, without bleeding; K31.89 Other diseases of stomach and duodenum
CPT/HCPCS: 43239; 43251; G0121; 88305; 88312; 88342; A4216; J2405